=== PATIENT | male | born 1945 | race Caucasian/White ===

== ENCOUNTER 2016-04-26 19:30 | Inpatient (IN) | payer MEDICARE ==
[2016-04-26] MEDS ORDERED: NS 0.9% 1000 ML* 1,000 ML IV ONE (19:55)
[2016-04-26] MEDS ORDERED: Acetaminophen TAB* 325 MG PO ONE (20:00)
--- NOTE | 2016-04-26 20:31 | RAD ---
Indication: Cough and fever. Post chemotherapy yesterday. Multiple myeloma. Prostate carcinoma. Comparison: There are no prior exams available on the [facility] for comparison. Technique: Upright AP portable 1010 hours Report: Bilateral alveolar opacities most confluent in the RIGHT lower lung zone. Grossly clear pleural spaces. Negative for pneumothorax. Negative for cardiomegaly. Grossly unremarkable central pulmonary vasculature. IMPRESSION: Bilateral alveolar opacities. The differential includes pneumonia as well as alveolar hemorrhage and ARDS.
[2016-04-26 20:45] LABS: Comments Flag Yes; Hematocrit 30 % (42-52); Hemoglobin 10.1 g/dl (14.0-18.0); Mean Corpuscular HGB Conc 33 g/dl (31-36); Mean Corpuscular Hemoglobin 33 pg (27-31); Mean Corpuscular Volume 98 fL (80-94); Mean Platelet Volume 9 um3 (7.4-10.4); Red Blood Count 3.08 10^6/ul (4.0-5.4); Red Cell Distribution Width 18 % (10.5-15); White Blood Count 2.2 10^3/ul (3.5-10.8)
[2016-04-26 20:46] LABS: Add Diff/Slide Review? Slide Review Added
[2016-04-26] MEDS ORDERED: Piperac/Tazob 3.375 gm in NS* 3.375 GM/100 ML BAG IVPB ONE (20:58)
[2016-04-26 20:59] LABS: Albumin 3.2 g/dL (3.2-5.2); C Reactive Protein 66.64 mg/L (< 5.00); Calcium 8.3 mg/dL (8.6-10.3); EGFR African American 62.7 (>60); EGFR Non-African American 48.8 (>60); Globulin 2.3 g/dL (2-4); Potassium 4.5 mmol/L (3.5-5.0); Total Bilirubin 0.8 mg/dL (0.2-1.0); Total Protein 5.5 g/dL (6.4-8.9)
[2016-04-26 21:01] LABS: Troponin I 0.01 ng/mL (<0.04)
[2016-04-26 21:46] LABS: Erythrocyte Sed Rate 48 mm/Hr (0-40)
--- NOTE | 2016-04-26 22:01 | ED ---
Lamont Devries Anna, scribed for Ruperto Lazaro MD on 04/26/16 at 1957 . HPI Febrile Illness - HPI Summary HPI Summary: Patient is a 71 y/o male coming to [facility] with a fever that began today, peaking at 102.6 F. He has had an ongoing productive cough and cold, including nasal congestion. He has taken Mucinex, which has not alleviated the symptoms. He is very tired, at baseline for his treatment. Denies diarrhea, nausea, and vomiting. His most recent chemotherapy treatment was 1-2 days ago. - History of Current Complaint Time Seen by Provider: 04/26/16 19:48 Hx Obtained From: Patient, Family/Material Handling Technician Onset/Duration: Still Present Temperature: 102.6 F Initial Severity: Moderate Current Severity: Moderate Associated Signs and Symptoms: Cough - Allergy/Home Medications Allergies/Adverse Reactions: Allergies Allergy/AdvReac Type Severity Reaction Status Date / Time No Known Allergies Allergy Verified 02/08/12 13:58 Home Medications: Home Medications Apixaban* [Eliquis*] 5 mg PO BID 04/26/16 [History Confirmed 04/26/16] Cardizem CD CAP* 300 mg PO DAILY 04/26/16 [History Confirmed 04/26/16] Tmhxt-2-Iwbr Ethyl Esters (NF) [Lovaza (NF)] 1 gm PO 04/26/16 [History] Synthroid 75 MCG TAB* 0.075 mg PO DAILY 04/26/16 [History Confirmed 04/26/16] Tamsulosin CAP* [Flomax CAP*] 0.4 mg PO DAILY 04/26/16 [History Confirmed ] Zoledronic Acid* [Zometa] 4 mg .SEE ORDER 04/26/16 [History] PMH/Surg Hx/FS Hx/Imm Hx Cardiovascular History: Reports: Hx Atrial Fibrillation, Hx Hypertension - Cancer History Cancer Type, Location and Year: Prostate CA, Melanoma, Multiple Myeloma - Surgical History Surgery Procedure, Year, and Place: multiple myeloma. prostate ca - actively watching this now. skin CA Infectious Disease History: Denies: Traveled Outside the [place] in Last 30 Days - Family History Known Family History: Positive: Other - CA - Social History Occupation: Retired Lives: With Family Alcohol Use: None Substance Use Type: Reports: None Hx Tobacco Use: No Smoking Status (MU): Never Smoked Tobacco Review of Systems Positive: Fever, Fatigue Positive: Other - congestion Positive: Cough All Other Systems Reviewed And Are Negative: Yes Physical Exam - Summary Physical Exam Summary: VITAL SIGNS: Reviewed. GENERAL: Patient is a well developed and nourished male who is lying comfortable in the stretcher. Patient is not in any acute respiratory distress. HEAD AND FACE: No signs of trauma. No ecchymosis, hematomas or skull depressions. No sinus tenderness. EYES: PERRLA, EOMI x 2, No injected conjunctiva, no nystagmus. EARS: Hearing grossly intact. Ear canals and tympanic membranes are within normal limits. MOUTH: Oropharynx within normal limits. NECK: Supple, trachea is midline, no adenopathy, no JVD, no carotid bruit, no c- spine tenderness, neck with full ROM. CHEST: Symmetric, no tenderness at palpation LUNGS: Positive crackles in both lungs. . CVS: Regular rate and rhythm, S1 and S2 present, no murmurs or gallops appreciated. ABDOMEN: Soft, non-tender. No signs of distention. No rebound no guarding, and no masses palpated. Bowel sounds are normal. EXTREMITIES: FROM in all major joints, no edema, no cyanosis or clubbing. NEURO: Alert and oriented x 3. No acute neurological deficits. Speech is normal and follows commands. SKIN: Dry and warm Triage Information Reviewed: Yes Vital Signs On Initial Exam: Initial Vitals Temp Pulse Resp BP Pulse Ox 101.4 F 86 30 139/71 93 04/26/16 19:57 04/26/16 19:57 04/26/16 19:57 04/26/16 19:57 04/26/16 19:57 Vital Signs Reviewed: Yes Diagnostics - Vital Signs Vital Signs Temp Pulse Resp BP Pulse Ox 04/26/16 19:57 101.4 F 86 30 139/71 93 - Laboratory Lab Results: Lab Results 04/26/16 04/26/16 04/26/16 Range/Units 20:25 20:25 20:25 WBC 2.2 L (3.5-10.8) 10^3/ul RBC 3.08 L (4.0-5.4) 10^6/ul Hgb 10.1 L (14.0-18.0) g/dl Hct 30 L (42-52) % MCV 98 H (80-94) fL MCH 33 H (27-31) pg MCHC 33 (31-36) g/dl RDW 18 H (10.5-15) % Plt Count 31 L (150-450) 10^3/ul MPV 9 (7.4-10.4) um3 Neut % (Auto) 93.0 H (38-83) % Lymph % (Auto) 2.0 L (25-47) % Chaves % (Auto) 4.6 (1-9) % Eos % (Auto) 0.2 (0-6) % Baso % (Auto) 0.2 (0-2) % Absolute Neuts (auto) 2.0 (1.5-7.7) 10^3/ul Absolute Lymphs (auto) 0 L (1.0-4.8) 10^3/ul Absolute Monos (auto) 0.1 (0-0.8) 10^3/ul Absolute Eos (auto) 0 (0-0.6) 10^3/ul Absolute Basos (auto) 0 (0-0.2) 10^3/ul Absolute Nucleated RBC 0.01 10^3/ul Nucleated RBC % 0.5 ESR Pending INR (Anticoag Therapy) 1.14 H (0.89-1.11) APTT 26.3 (26.0-36.3) seconds Fibrinogen 423 H (110.8-404.3) mg/dL Sodium 134 (133-145) mmol/L Potassium 4.5 (3.5-5.0) mmol/L Chloride 101 (101-111) mmol/L Carbon Dioxide 26 (22-32) mmol/L Anion Gap 7 (2-11) mmol/L BUN 30 H (6-24) mg/dL Creatinine 1.43 H (0.67-1.17) mg/dL Est GFR ( Amer) 62.7 (>60) Est GFR (Non-Af Amer) 48.8 (>60) BUN/Creatinine Ratio 21.0 H (8-20) Glucose 111 H (70-100) mg/dL Lactic Acid (0.5-2.0) mmol/L Calcium 8.3 L (8.6-10.3) mg/dL Total Bilirubin 0.80 (0.2-1.0) mg/dL AST 12 L (13-39) U/L ALT 17 (7-52) U/L Alkaline Phosphatase 39 (34-104) U/L Troponin I 0.01 (<0.04) ng/mL C-Reactive Protein 66.64 H (< 5.00) mg/L B-Natriuretic Peptide ( - 100) pg/mL Total Protein 5.5 L (6.4-8.9) g/dL Albumin 3.2 (3.2-5.2) g/dL Globulin 2.3 (2-4) g/dL Albumin/Globulin Ratio 1.4 (1-3) 04/26/16 04/26/16 Range/Units 20:25 20:25 WBC (3.5-10.8) 10^3/ul RBC (4.0-5.4) 10^6/ul Hgb (14.0-18.0) g/dl Hct (42-52) % MCV (80-94) fL MCH (27-31) pg MCHC (31-36) g/dl RDW (10.5-15) % Plt Count (150-450) 10^3/ul MPV (7.4-10.4) um3 Neut % (Auto) (38-83) % Lymph % (Auto) (25-47) % Chaves % (Auto) (1-9) % Eos % (Auto) (0-6) % Baso % (Auto) (0-2) % Absolute Neuts (auto) (1.5-7.7) 10^3/ul Absolute Lymphs (auto) (1.0-4.8) 10^3/ul Absolute Monos (auto) (0-0.8) 10^3/ul Absolute Eos (auto) (0-0.6) 10^3/ul Absolute Basos (auto) (0-0.2) 10^3/ul Absolute Nucleated RBC 10^3/ul Nucleated RBC % ESR INR (Anticoag Therapy) (0.89-1.11) APTT (26.0-36.3) seconds Fibrinogen (110.8-404.3) mg/dL Sodium (133-145) mmol/L Potassium (3.5-5.0) mmol/L Chloride (101-111) mmol/L Carbon Dioxide (22-32) mmol/L Anion Gap (2-11) mmol/L BUN (6-24) mg/dL Creatinine (0.67-1.17) mg/dL Est GFR ( Amer) (>60) Est GFR (Non-Af Amer) (>60) BUN/Creatinine Ratio (8-20) Glucose (70-100) mg/dL Lactic Acid 1.9 (0.5-2.0) mmol/L Calcium (8.6-10.3) mg/dL Total Bilirubin (0.2-1.0) mg/dL AST (13-39) U/L ALT (7-52) U/L Alkaline Phosphatase (34-104) U/L Troponin I (<0.04) ng/mL C-Reactive Protein (< 5.00) mg/L B-Natriuretic Peptide 828 H ( - 100) pg/mL Total Protein (6.4-8.9) g/dL Albumin (3.2-5.2) g/dL Globulin (2-4) g/dL Albumin/Globulin Ratio (1-3) Result Diagrams: 04/26/16 20:25 04/26/16 20:25 Lab Statement: Any lab studies that have been ordered have been reviewed, and results considered in the medical decision making process. - Radiology CXR Xray Interpretation: Positive (See Comments) Radiology Interpretation Completed By: Radiologist - IMPRESSION: Bilateral alveolar opacities. The differential includes pneumonia as well as alveolar hemorrhage and ARDS. - EKG 21:11 Cardiac Rate: NL - 89 bpm EKG Rhythm: Atrial Fibrillation EKG Interpretation: No S/T elevation Course/Dx - Course Assessment/Plan: Patient is a 71 y/o male coming to [facility] with a fever that began today, peaking at 102.6 F. He has had an ongoing productive cough and cold , including nasal congestion. He has taken Mucinex, which has not alleviated the symptoms. He is very tired, at baseline for his treatment. Denies diarrhea, nausea, and vomiting. His most recent chemotherapy treatment was 1-2 days ago. In the Ed course he was given IV fluids and Tylenol for the fever and Zosyn as a broad spectrum antibiotic. CXR impression: Bilateral alveolar opacities. Pneumonia vs alveolar hemorrhages vs ARDS. Blood work shows a WBCs of 2.2, normocytic normochromic anemia, and platelets of 31. Which is lower of his base line. BUN and creatinine is 30/1.43. CRP is 66.64. I discussed the case with Dr. Montaño from Oncology and she agrees with choice of antibiotics. She recommends to admit to Hospitalist. I discuss my physical exam, findings and test results with Dr. Kam from the hospitalist services and she agrees to admit patient to his services. Patient is hemodynamically stable alert and oriented x 3. - Febrile Illness Differential Diagnoses: Bacteremia, Pneumonia, Sepsis - Diagnoses Provider Diagnoses: Pneumonia, r/o sepsis, Thrombocytopenia - Provider Notifications Discussed Care Of Patient With: Dr. Montaño (oncologist) at 19:57. He does not recommend starting Abx now. Dr. Montaño (oncologist) at 21:07. Patient should be admitted to the hospitalist. Dr. Rivera (hospitalist) at 21:09. Agrees to admit patient. Discharge - Discharge Plan Condition: Stable Disposition: ADMITTED TO [facility] The documentation as recorded by the Lamont delgado Anna accurately reflects the service I personally performed and the decisions made by me, Ruperto Lazaro MD.
[2016-04-26 22:52] LABS: PCO2 Arterial 29 mmHg (35-45)
[2016-04-26 23:33] LABS: Urine Bilirubin Negative (Negative); Urine Glucose Negative (Negative); Urine Nitrite Negative (Negative)
[2016-04-27] MEDS ORDERED: Apixaban* 5 MG TAB PO SCH (02:00)
[2016-04-27] MEDS: Azithromycin IV(*) 500 MG in NS 0.9% 250 ML* 250 ML IVPB SCH (02:15)
[2016-04-27] MEDS: Piperac/Tazob 3.375 gm in NS* 3.375 GM/100 ML BAG IVPB SCH ×3 (03:20→20:40)
[2016-04-27] MEDS: Levothyroxine TAB* 75 MCG TAB PO SCH (05:49)
[2016-04-27 06:22] LABS: Hematocrit 28 % (42-52); Hemoglobin 9.4 g/dl (14.0-18.0); Mean Corpuscular HGB Conc 33 g/dl (31-36); Mean Corpuscular Hemoglobin 33 pg (27-31); Mean Corpuscular Volume 98 fL (80-94); Mean Platelet Volume 10 um3 (7.4-10.4); Red Blood Count 2.88 10^6/ul (4.0-5.4); Red Cell Distribution Width 18 % (10.5-15)
[2016-04-27 06:23] LABS: Comments Flag Yes; White Blood Count 2.4 10^3/ul (3.5-10.8)
--- NOTE | 2016-04-27 06:32 | HP ---
HISTORY AND PHYSICAL: DATE OF ADMISSION: 04/27/16 CHIEF COMPLAINT: Fever. HISTORY OF PRESENT ILLNESS: The patient is a 71-year-old gentleman with a history of multiple myeloma diagnosed in 2011, who presents today with fever. He says that he was supposed to come in if his temperature goes over 100.5 and it went over 102.3 today. He also felt a little short of breath with a cough. The cough is productive of white phlegm. He had no chest pain, but he had decreased appetite. No nausea or vomiting. No abdominal pain. No other symptoms. He did not sweat. He did not feel clammy. In the ED, the patient was evaluated and felt to have a bilateral pneumonia. PAST MEDICAL HISTORY: He has a history significant for multiple myeloma diagnosed in 2011, status post stem cell transplant x2, prostate cancer with watchful waiting, hypertension, BPH, hyperlipidemia, hypothyroidism, atrial fibrillation. MEDICATIONS: His current medications are as follows. 1. Synthroid 75 mcg daily. 2. Multivitamin one tablet daily. 3. Ferrous sulfate 28 mg daily. 4. Cholecalciferol 1000 units twice daily. 5. Calcium carbonate one tablet twice daily. 6. Ascorbic acid 500 mg daily. 7. Valacyclovir 500 mg daily. 8. Magness-3 fatty acids 1 g daily. 9. Atorvastatin 10 mg daily. 10. Cardizem CD 300 mg daily. 11. Eliquis 5 mg twice daily. 12. Tamsulosin 0.4 mg daily. 13. Zometa as directed. ALLERGIES: He has no known drug allergies. FAMILY HISTORY: Mother at age 70 of CHF. Father is alive at 97, has dementia. SOCIAL HISTORY: No tobacco. Social alcohol. No recreational drug use. He is retired. He worked for [employer] for; to (do) in the [employer] industry. He is . He has three children. His , Albina Reed, is his healthcare proxy. REVIEW OF SYSTEMS: A 14-point review of systems was completed with the patient. All pertinent positives and negatives are in the history of present illness, otherwise is negative. PHYSICAL EXAMINATION GENERAL: A pleasant gentleman, lying in bed. VITAL SIGNS: Temperature is 99.5 degrees. Heart rate is 78 beats per minute. Respiratory rate 27 breaths per minute. Pulse ox is 99%. Blood pressure is 104 /76. HEENT: Normocephalic, atraumatic. Pupils equal, round, and reactive to light. Moist mucous membranes. NECK: Supple. No JVD, bruits, palpable thyroid or lymphadenopathy. CHEST: Clear to auscultation and percussion bilaterally. CARDIOVASCULAR: S1, S2 appreciated. Regular rate and rhythm. No murmurs, gallops or rubs. ABDOMEN: Positive bowel sounds in all four quadrants. Soft, nontender, nondistended. No hepatosplenomegaly. EXTREMITIES: No cyanosis, clubbing or edema. +2 pulses bilaterally. NEUROLOGIC: Alert and oriented x3. Moves all extremities. SKIN: No rashes or abnormalities. DIAGNOSTIC STUDIES/LAB DATA: White count 2.2, hemoglobin 10.1, hematocrit 30, platelets 31. INR is 1.14. Blood gas: pH 7.3, pCO2 29, pO2 56, bicarb 26.2. Sodium 134, potassium 4.5, chloride 101, CO2 of 26, BUN 30, creatinine 1.43, glucose of 111. BNP is 828. Urinalysis is unremarkable. Influenza is negative. Chest x-ray was interpreted by Radiology as bilateral alveolar opacities. The differential includes pneumonia as well as alveolar hemorrhage and ARDS. EKG shows atrial fibrillation with moderate ventricular response, left axis deviation, left anterior hemiblock. ASSESSMENT AND PLAN: 1. Sepsis secondary to bilateral pneumonia: The patient has tachycardia. T- max is 101.4 here and has a white count of 2.2. Place the patient on Zosyn and Zithromax. Check sputum for C and S, urine for legionella and pneumococcal antigen. The patient is satting, despite 8 to 10 L of nasal cannula, at 88%. We will place him in ICU for Vapotherm until he improves. 2. History of atrial fibrillation: Continue Eliquis. Rate is now adequately controlled. 3. Hypothyroidism: Stable. Continue Synthroid. 4. Hyperlipidemia: Stable. Continue Lipitor. 5. Benign prostatic hypertrophy: Stable. Continue Flomax. 6. Fluids, electrolytes, and nutrition: Regular diet. 7. DVT prophylaxis: On Eliquis. 8. The patient is a full code. TIME SPENT: Over 80 minutes were spent on this H and P, more than 45 minutes of which were spent in direct [id number] contact with the patient in evaluation, physical exam, and counseling and coordination of care. CC: Toya Montaño MD.* [id number]/CPS #: [id number] [facility] NYACK HOSPITALMeredith
[2016-04-27] MEDS: Acetaminophen TAB* 325 MG PO PRN ×2 (07:52→16:51)
[2016-04-27] MEDS: Ascorbic Acid TAB* 500 MG PO SCH (07:52)
[2016-04-27] MEDS: Tamsulosin CAP* 0.4 MG PO SCH (07:52)
[2016-04-27] MEDS: Ferrous Sulfate TAB* 325 MG PO SCH (07:52)
[2016-04-27] MEDS: Multivitamins/Minerals TAB PO SCH (07:54)
[2016-04-27] MEDS: CMCS: OMEGA-3 FATTY ACIDS (NF) 1,000 MG CAP PO SCH (07:54)
[2016-04-27] MEDS: Cholecalciferol TAB* 1000 UNITS PO SCH ×2 (07:54→20:27)
[2016-04-27] MEDS: Atorvastatin* 10 MG TAB PO SCH (07:54)
[2016-04-27] MEDS: Diltiazem CD CAP* 180 MG PO SCH (07:55)
[2016-04-27] MEDS: Calcium/Vitamin D TAB 250/125* TAB PO SCH ×2 (07:55→20:26)
[2016-04-27] MEDS: Diltiazem CD CAP* 120 MG PO SCH (08:16)
[2016-04-27] MEDS ORDERED: Vancomycin(*) 1,250 MG in NS 0.9% 250 ML* 250 ML IVPB ONE (08:39)
[2016-04-27] MEDS ORDERED: NS 0.9% 1000 ML* 1,000 ML IV SCH (08:45)
--- NOTE | 2016-04-27 08:59 | PN ---
Progress Note - Progress Note SOAP: Subjective/History: 71 yo M w metastatic, though quiescent, prostate cancer, and multiple myeloma on therapy presenting with 1 day of fevers and SOB Myeloma:note primary oncologist at [place], Dr. Lockhart Dx in 2011 with IgG kappa MM sp induction with RVD followed by melphalan induction and autologous SCT on 10/2011. He had tandome transplant with second transplant 02/2012. he was disease free until 12/2014 when he relapsed in his bone. He started carflizomib/lenolidomide/dex. He had an admission in May 2015 for heman metapneumovirus. He had an admission in October 2015 with left lowe rlobe PNA. He had stable disease until October of 2015 when he developed new lytic lesions. He started carfilzomeb/cyclophosphamide/ lenalidomide/dex in November of 2015 and is now on cycle 6. He had a recent delay ~3 weeks ago for a mild URI and gastroenteritis. He felt fully recovered and had cycle 6 day 8 and 9 this week in our office Sunday and Sunday. He felt quite well until yesterday when he woke up feeling weak, with a cough productive of white sputum. He developed a fever and went to the ER where he was noted to be febrile and hypoxic. CXR shows bilateral alveolar infiltrates concerning for ARDS. He denies hemoptysis. He was given zosyn and azithro and admitted to the ICU on vapotherm for hypoxia. He has been taking his valtrex prophylaxis at home. He is on eloquis for afib stroke prevention. He denies sick contact. Flu swab in the ER was negative. No nausea, vomiting or diarrhea. Per his primary oncologist's notes, there has been a recent increase in disease with recurrence of a small m-spike and plan for repeat PET/CT after this cycle. TREATMENT: carflizomib 27 mg/m2 dys 1, 2, 8, 9, 15 and 16 cyclophosphamide 300 mg/m2 dys 1, 8, and 15 lenolidomide 25 mg po days 1-21 dexamethasone 20 mg IV dys 1, 2, 8, 9, 15 and 16 Objective: Vital Signs Temp Pulse Resp BP Pulse Ox 101.4 F 98 28 125/85 98 04/27/16 08:00 04/27/16 08:00 04/27/16 08:00 04/27/16 07:45 04/27/16 08:00 ill appearing, hypoxic perr eomi op no thrush diffuse coarse rhonchi tachy and irregular soft nt +bs no le edema A+O x 3, nonfocal neurological exam no rashes Laboratory Results - last 24 hr 04/26/16 04/26/16 04/26/16 20:25 20:25 20:25 WBC 2.2 L RBC 3.08 L Hgb 10.1 L Hct 30 L MCV 98 H MCH 33 H MCHC 33 RDW 18 H Plt Count 31 L MPV 9 Neut % (Auto) 93.0 H Lymph % (Auto) 2.0 L [place] % (Auto) 4.6 Eos % (Auto) 0.2 Baso % (Auto) 0.2 Absolute Neuts (auto) 2.0 Absolute Lymphs (auto) 0 L Absolute Monos (auto) 0.1 Absolute Eos (auto) 0 Absolute Basos (auto) 0 Absolute Nucleated RBC 0.01 Nucleated RBC % 0.5 ESR 48 H INR (Anticoag Therapy) 1.14 H APTT 26.3 Fibrinogen 423 H ABG pH ABG pCO2 ABG pO2 ABG HCO3 ABG O2 Saturation ABG Base Excess Sodium 134 Potassium 4.5 Chloride 101 Carbon Dioxide 26 Anion Gap 7 BUN 30 H Creatinine 1.43 H Est GFR ( Amer) 62.7 Est GFR (Non-Af Amer) 48.8 BUN/Creatinine Ratio 21.0 H Glucose 111 H Lactic Acid Calcium 8.3 L Total Bilirubin 0.80 AST 12 L ALT 17 Alkaline Phosphatase 39 Troponin I 0.01 C-Reactive Protein 66.64 H B-Natriuretic Peptide Total Protein 5.5 L Albumin 3.2 Globulin 2.3 Albumin/Globulin Ratio 1.4 Urine Color Urine Appearance Urine pH Ur Specific Maple Urine Protein Urine Ketones Urine Blood Urine Nitrate Urine Bilirubin Urine Urobilinogen Ur Leukocyte Esterase Urine Glucose Influenza A (Rapid) Influenza B (Rapid) 04/26/16 04/26/16 04/26/16 20:25 20:25 22:32 WBC RBC Hgb Hct MCV MCH MCHC RDW Plt Count MPV Neut % (Auto) Lymph % (Auto) [place] % (Auto) Eos % (Auto) Baso % (Auto) Absolute Neuts (auto) Absolute Lymphs (auto) Absolute Monos (auto) Absolute Eos (auto) Absolute Basos (auto) Absolute Nucleated RBC Nucleated RBC % ESR INR (Anticoag Therapy) APTT Fibrinogen ABG pH ABG pCO2 ABG pO2 ABG HCO3 ABG O2 Saturation ABG Base Excess Sodium Potassium Chloride Carbon Dioxide Anion Gap BUN Creatinine Est GFR ( Amer) Est GFR (Non-Af Amer) BUN/Creatinine Ratio Glucose Lactic Acid 1.9 Calcium Total Bilirubin AST ALT Alkaline Phosphatase Troponin I C-Reactive Protein B-Natriuretic Peptide 828 H Total Protein Albumin Globulin Albumin/Globulin Ratio Urine Color Urine Appearance Urine pH Ur Specific Maple Urine Protein Urine Ketones Urine Blood Urine Nitrate Urine Bilirubin Urine Urobilinogen Ur Leukocyte Esterase Urine Glucose Influenza A (Rapid) Negative Influenza B (Rapid) Negative 04/26/16 04/26/16 04/26/16 22:40 23:15 23:20 WBC RBC Hgb Hct MCV MCH MCHC RDW Plt Count MPV Neut % (Auto) Lymph % (Auto) [place] % (Auto) Eos % (Auto) Baso % (Auto) Absolute Neuts (auto) Absolute Lymphs (auto) Absolute Monos (auto) Absolute Eos (auto) Absolute Basos (auto) Absolute Nucleated RBC Nucleated RBC % ESR INR (Anticoag Therapy) APTT Fibrinogen ABG pH 7.53 H ABG pCO2 29 L ABG pO2 56 L* ABG HCO3 26.2 ABG O2 Saturation 94.0 L ABG Base Excess 1.7 Sodium Potassium Chloride Carbon Dioxide Anion Gap BUN Creatinine Est GFR ( Amer) Est GFR (Non-Af Amer) BUN/Creatinine Ratio Glucose Lactic Acid 0.9 Calcium Total Bilirubin AST ALT Alkaline Phosphatase Troponin I C-Reactive Protein B-Natriuretic Peptide Total Protein Albumin Globulin Albumin/Globulin Ratio Urine Color Yellow Urine Appearance Clear Urine pH 5.0 Ur Specific Maple 1.018 Urine Protein Negative Urine Ketones Negative Urine Blood Negative Urine Nitrate Negative Urine Bilirubin Negative Urine Urobilinogen Negative Ur Leukocyte Esterase Negative Urine Glucose Negative Influenza A (Rapid) Influenza B (Rapid) 04/27/16 05:54 WBC 2.4 L RBC 2.88 L Hgb 9.4 L Hct 28 L MCV 98 H MCH 33 H MCHC 33 RDW 18 H Plt Count 28 L MPV 10 Neut % (Auto) 91.7 H Lymph % (Auto) 4.1 L [place] % (Auto) 3.4 Eos % (Auto) 0.6 Baso % (Auto) 0.2 Absolute Neuts (auto) 2.2 Absolute Lymphs (auto) 0.1 L Absolute Monos (auto) 0.1 Absolute Eos (auto) 0 Absolute Basos (auto) 0 Absolute Nucleated RBC 0.02 Nucleated RBC % 0.9 ESR INR (Anticoag Therapy) APTT Fibrinogen ABG pH ABG pCO2 ABG pO2 ABG HCO3 ABG O2 Saturation ABG Base Excess Sodium Potassium Chloride Carbon Dioxide Anion Gap BUN Creatinine Est GFR ( Amer) Est GFR (Non-Af Amer) BUN/Creatinine Ratio Glucose Lactic Acid Calcium Total Bilirubin AST ALT Alkaline Phosphatase Troponin I C-Reactive Protein B-Natriuretic Peptide Total Protein Albumin Globulin Albumin/Globulin Ratio Urine Color Urine Appearance Urine pH Ur Specific Maple Urine Protein Urine Ketones Urine Blood Urine Nitrate Urine Bilirubin Urine Urobilinogen Ur Leukocyte Esterase Urine Glucose Influenza A (Rapid) Influenza B (Rapid) Assessment: 71 yo M w relapsed MM on cyclophosphamide/carflizomib/lenolidamide/ dexamethasone cycle 6 day 11 presenting with fevers, cough and SOB and found to have bilateral PNA vs. ARDS. His course is quite rapid arguing for a viral or bacterial process rather than a fungal one, though he did have a recent "URI" in cycle 5 with gastroenteritis delaying therapy. I have asked the can line operator , Dr. De La Cruz, and Dr. Doan to consult. Plan: PNA: cont ICU supportive care on vapotherm now with tenuous but stable respiratory status -cont zosyn and azithro for now -one dose vanco given pending ID consultation -swab for human metapneumovirus -sputum culture -CMV PCR MM: significantly immunosuppressed from this but not neutropenic -check quantitative immunoglobulins, will likely benefit from IVIG if IgG <500 -hold therapy for now -valtrex prophylaxis give proteosome inhibitor therapy thrombocytopenia: consistent with disease and treatment. lower now likely related to illness hold eloquis afib w RVR: rate 90s-110, relatively well controlled given current state cont diltiazem ARF: likely prerenal azotemia as it was normal in our office on Sunday start hydration full code no DVT prophylaxis with severe thrombocytopenia
[2016-04-27] MEDS: ValACYclovir (*) 500 MG TAB PO SCH ×2 (09:21→20:27)
[2016-04-27 10:13] LABS: Albumin 2.4 g/dL (3.2-5.2); BUN/Creatinine Ratio 19.3 (8-20); Calcium 6.9 mg/dL (8.6-10.3); EGFR Non-African American 52.1 (>60); Globulin 1.5 g/dL (2-4); Potassium 4.3 mmol/L (3.5-5.0); Total Bilirubin 0.8 mg/dL (0.2-1.0); Total Protein 3.9 g/dL (6.4-8.9)
[2016-04-27] MEDS: Benzonatate CAP* 100 MG PO PRN (13:46)
[2016-04-27] MEDS: Albuterol/Ipratropium NEB.SOL* Albuterol 2.5 MG/Ipratropium 0.5 MG 3 ML INH PRN (13:53)
[2016-04-27] MEDS ORDERED: Albuterol 2.5 MG/3 ML NEB.SOL* (0.083%) INH STA (14:56)
--- NOTE | 2016-04-27 14:56 | CONSULT ---
Consult Consult: Consultation Note Critical Care Requesting Physician: Dr Toya Montaño Reason for consult: hypoxic respiratory failure Limitations in history/physical: respiratory distress Date of consult: 04/27/2016 HPI: 71y M pmhx Afib on AC, Multiple Myeloma s/p autologous transplant 2011 with relapse 2014, now on chemotherapy with last session 04/25 (cycle 6), h/o prostate cancer, [place] [facility] [place] with human metapneumovirus 05/2015 and again 10/2015; He [place] [facility] [place] for fever 102.6, cough+, sputum+, nasal congestion. He was s/p chemotherapy 04/25. reports cough for the past week, no fevers/chills, minimal shortness of breath, no sick contacts/ travel/rashes. No diarrhea/headache/dizziness/joint pains. Muscle soreness+. Some coughing up of blood tinged sputum at times but streaks only. Initial ED vitals 101.4, HR 104, RR 30, bp 139/71, sat 93%; initial lactic acid was 1.9, bnp 828, found to be pancytopenic with bilateral pulm infiltrates. In ER he was given zosyn, azithromycin, blood cx sent. He was started on HF NC for hypoxia. Admitted to the ICU. ROS: negative except for the positives mentioned above. PMHx: multiple myeloma, s/p autologous transplant 2011 with relapse 2014, h/o prostate ca, hypertension, hyperlipidemia, hypothyroidism PSHx: none Family History: mother at 70 CHF; father alive - Dementia Social History: no smoking, social alcohol use, no rec drug use. , , and 3 children. Allergies: NKDA Home Medications: Atorvastatin* [Lipitor*] 10 mg PO DAILY 02/08/12 [History Confirmed 04/27/16] Apixaban* [Eliquis*] 5 mg PO BID 04/26/16 [History Confirmed 04/26/16] Cardizem CD CAP* 300 mg PO DAILY 04/26/16 [History Confirmed 04/26/16] Ysfef-8-[id number] Ethyl Esters (NF) [Lovaza (NF)] 1 gm PO DAILY 04/26/16 [History Confirmed 04/27/16] Synthroid 75 MCG TAB* 0.075 mg PO DAILY 04/26/16 [History Confirmed 04/27/16] Tamsulosin CAP* [Flomax CAP*] 0.4 mg PO DAILY 04/26/16 [History Confirmed ] Zoledronic Acid* [Zometa] 4 mg .SEE ORDER 04/26/16 [History] Ascorbic Acid [Vitamin C] 500 mg PO DAILY 04/27/16 [History Confirmed 04/27/16] Calcium Carbonate-Vitamin D W/ [Caltrate 600+D Plus] 1 tab PO BID 04/27/16 [ History Confirmed 04/27/16] Cholecalciferol [Vitamin D] 1,000 unit PO BID 04/27/16 [History Confirmed ] Ferrous Sulfate [Iron] 28 mg PO DAILY 04/27/16 [History Confirmed 04/27/16] Multiple Vitamins W/ Minerals [Multivitamin Adults] 1 tab PO DAILY 04/27/16 [ History Confirmed 04/27/16] ValACYclovir (*) [Valtrex 500 mg (*)] 500 mg PO DAILY 04/27/16 [History Confirmed 04/27/16] Vitals: Vital Signs Temp 99.6 F 04/27/16 11:50 Pulse 108 04/27/16 14:00 Resp 36 04/27/16 14:00 BP 120/80 04/27/16 14:00 Pulse Ox 90 04/27/16 14:00 Intake & Output 04/26/16 04/27/16 04/27/16 18:59 06:59 18:59 Intake Total 1637 1050 Output Total 225 550 Balance 1412 500 Weight 173 lb 11.588 oz Intake: IV Fluids 1437 ABX - AZITHROMYCIN 270 ABX - ZOSYN 67 IVPB 450 ABX - VANCOMYCIN 250 ABX - ZOSYN 200 Oral 200 600 Output: Urine 225 550 O2/Vent: HF 100%, 40Lpm -> rr 25 now, sat 100% Infusions: NS 125cc/hour Current Medications: Acetaminophen (Tylenol Tab*) 650 mg PO Q4H PRN PRN Reason: FEVER/PAIN Last Admin: 04/27/16 07:52 Dose: 650 mg Albuterol (Ventolin 2.5 Mg/3 Ml Neb.Lorenza*) 2.5 mg INH Q20M STA Stop: 04/27/16 14:57 Albuterol/Ipratropium (Duoneb Neb.Lorenza*) 1 neb INH Q4H PRN PRN Reason: SOB/WHEEZING Last Admin: 04/27/16 13:53 Dose: 1 neb Ascorbic Acid (Vitamin C Tab*) 500 mg PO DAILY [facility] Last Admin: 04/27/16 07:52 Dose: 500 mg Atorvastatin Calcium (Lipitor*) 10 mg PO DAILY [facility] Last Admin: 04/27/16 07:54 Dose: 10 mg Benzonatate (Tessalon Cap*) 200 mg PO TID PRN PRN Reason: COUGH Last Admin: 04/27/16 13:46 Dose: 200 mg Calcium/Vitamin D (Oscal D Tab 250/125*) 2 tab PO BID [facility] Last Admin: 04/27/16 07:55 Dose: 2 tab Cholecalciferol (Vitamin D Tab*) 1,000 units PO BID [facility] Last Admin: 04/27/16 07:54 Dose: 1,000 units Diltiazem HCl (Cardizem Cd Cap*) 120 mg PO DAILY [facility] Last Admin: 04/27/16 08:16 Dose: 120 mg Diltiazem HCl (Cardizem Cd Cap*) 180 mg PO DAILY [facility] Last Admin: 04/27/16 07:55 Dose: 180 mg Ferrous Sulfate (Ferrous Sulfate Tab*) 325 mg PO 0800 [facility] Last Admin: 04/27/16 07:52 Dose: 325 mg Fish Oil (Fish Oil (Nf)) 1 mg PO DAILY [facility] PRN Reason: Protocol Last Admin: 04/27/16 07:54 Dose: 1,000 mg Azithromycin 500 mg/ Sodium (Chloride) 250 mls @ 250 mls/hr IVPB Q24H [facility] Last Admin: 04/27/16 02:15 Dose: 250 mls/hr Piperacillin Sod/Tazobactam Sod (Zosyn 3.375 Gm In Ns Premix*) 3.375 gm in 100 mls @ 25 mls/hr IVPB Q8H [facility] Last Admin: 04/27/16 10:52 Dose: 25 mls/hr Sodium Chloride (Ns 0.9% 1000 Ml*) 1,000 mls @ 125 mls/hr IV PER RATE [facility] Anidulafungin 200 mg/ Sodium (Chloride) 260 mls @ 65 mls/hr IVPB .LOADING DOSE x 1 [facility] Anidulafungin 100 mg/ Sodium (Chloride) 130 mls @ 65 mls/hr IVPB Q24H [facility] Levothyroxine Sodium (Synthroid Tab*) 75 mcg PO DAILY@0600 [facility] Last Admin: 04/27/16 05:49 Dose: 75 mcg Multivitamins/Minerals (Theragran/Minerals Tab*) 1 tab PO DAILY [facility] Last Admin: 04/27/16 07:54 Dose: 1 tab Tamsulosin HCl (Flomax Cap*) 0.4 mg PO DAILY [facility] Last Admin: 04/27/16 07:52 Dose: 0.4 mg Valacyclovir HCl (Valtrex 500 Mg (*)) 500 mg PO BID [facility] PRN Reason: Protocol Last Admin: 04/27/16 09:21 Dose: 500 mg Physical Exam: General: awake, alert, in mod resp distress, in bed, not diaphoretic, able to answer questions HEENT: pallor+, no icterus, moist mucous membranes Neck: no stridor, no jvd CVS: tachycardic, no murmur Resp: bilateral air entry, scattered rhales bilateral base, diffuse wheeziong, mod distress, no acc muscle use Abdomen: soft, nontender, nondistended, no rebound, bowel sounds present Ext: pulses+, warm, no edema Skin: intact, no breakdown, no dryness Neuro: awake, alert, orientedx3, moving all extremities, no gross focal deficit Labs: Laboratory Results - last 24 hr 04/26/16 04/26/16 04/26/16 20:25 20:25 20:25 WBC 2.2 L RBC 3.08 L Hgb 10.1 L Hct 30 L MCV 98 H MCH 33 H MCHC 33 RDW 18 H Plt Count 31 L MPV 9 Neut % (Auto) 93.0 H Lymph % (Auto) 2.0 L [place] % (Auto) 4.6 Eos % (Auto) 0.2 Baso % (Auto) 0.2 Absolute Neuts (auto) 2.0 Absolute Lymphs (auto) 0 L Absolute Monos (auto) 0.1 Absolute Eos (auto) 0 Absolute Basos (auto) 0 Absolute Nucleated RBC 0.01 Nucleated RBC % 0.5 ESR 48 H INR (Anticoag Therapy) 1.14 H APTT 26.3 Fibrinogen 423 H ABG pH ABG pCO2 ABG pO2 ABG HCO3 ABG O2 Saturation ABG Base Excess Sodium 134 Potassium 4.5 Chloride 101 Carbon Dioxide 26 Anion Gap 7 BUN 30 H Creatinine 1.43 H Est GFR ( Amer) 62.7 Est GFR (Non-Af Amer) 48.8 BUN/Creatinine Ratio 21.0 H Glucose 111 H Lactic Acid Calcium 8.3 L Total Bilirubin 0.80 AST 12 L ALT 17 Alkaline Phosphatase 39 Troponin I 0.01 C-Reactive Protein 66.64 H B-Natriuretic Peptide Total Protein 5.5 L Albumin 3.2 Globulin 2.3 Albumin/Globulin Ratio 1.4 Urine Color Urine Appearance Urine pH Ur Specific [place] Urine Protein Urine Ketones Urine Blood Urine Nitrate Urine Bilirubin Urine Urobilinogen Ur Leukocyte Esterase Urine Glucose Influenza A (Rapid) Influenza B (Rapid) 04/26/16 04/26/16 04/26/16 20:25 20:25 22:32 WBC RBC Hgb Hct MCV MCH MCHC RDW Plt Count MPV Neut % (Auto) Lymph % (Auto) [place] % (Auto) Eos % (Auto) Baso % (Auto) Absolute Neuts (auto) Absolute Lymphs (auto) Absolute Monos (auto) Absolute Eos (auto) Absolute Basos (auto) Absolute Nucleated RBC Nucleated RBC % ESR INR (Anticoag Therapy) APTT Fibrinogen ABG pH ABG pCO2 ABG pO2 ABG HCO3 ABG O2 Saturation ABG Base Excess Sodium Potassium Chloride Carbon Dioxide Anion Gap BUN Creatinine Est GFR ( Amer) Est GFR (Non-Af Amer) BUN/Creatinine Ratio Glucose Lactic Acid 1.9 Calcium Total Bilirubin AST ALT Alkaline Phosphatase Troponin I C-Reactive Protein B-Natriuretic Peptide 828 H Total Protein Albumin Globulin Albumin/Globulin Ratio Urine Color Urine Appearance Urine pH Ur Specific [place] Urine Protein Urine Ketones Urine Blood Urine Nitrate Urine Bilirubin Urine Urobilinogen Ur Leukocyte Esterase Urine Glucose Influenza A (Rapid) Negative Influenza B (Rapid) Negative 04/26/16 04/26/16 04/26/16 22:40 23:15 23:20 WBC RBC Hgb Hct MCV MCH MCHC RDW Plt Count MPV Neut % (Auto) Lymph % (Auto) [place] % (Auto) Eos % (Auto) Baso % (Auto) Absolute Neuts (auto) Absolute Lymphs (auto) Absolute Monos (auto) Absolute Eos (auto) Absolute Basos (auto) Absolute Nucleated RBC Nucleated RBC % ESR INR (Anticoag Therapy) APTT Fibrinogen ABG pH 7.53 H ABG pCO2 29 L ABG pO2 56 L* ABG HCO3 26.2 ABG O2 Saturation 94.0 L ABG Base Excess 1.7 Sodium Potassium Chloride Carbon Dioxide Anion Gap BUN Creatinine Est GFR ( Amer) Est GFR (Non-Af Amer) BUN/Creatinine Ratio Glucose Lactic Acid 0.9 Calcium Total Bilirubin AST ALT Alkaline Phosphatase Troponin I C-Reactive Protein B-Natriuretic Peptide Total Protein Albumin Globulin Albumin/Globulin Ratio Urine Color Yellow Urine Appearance Clear Urine pH 5.0 Ur Specific [place] 1.018 Urine Protein Negative Urine Ketones Negative Urine Blood Negative Urine Nitrate Negative Urine Bilirubin Negative Urine Urobilinogen Negative Ur Leukocyte Esterase Negative Urine Glucose Negative Influenza A (Rapid) Influenza B (Rapid) 04/27/16 04/27/16 05:54 09:13 WBC 2.4 L RBC 2.88 L Hgb 9.4 L Hct 28 L MCV 98 H MCH 33 H MCHC 33 RDW 18 H Plt Count 28 L MPV 10 Neut % (Auto) 91.7 H Lymph % (Auto) 4.1 L [place] % (Auto) 3.4 Eos % (Auto) 0.6 Baso % (Auto) 0.2 Absolute Neuts (auto) 2.2 Absolute Lymphs (auto) 0.1 L Absolute Monos (auto) 0.1 Absolute Eos (auto) 0 Absolute Basos (auto) 0 Absolute Nucleated RBC 0.02 Nucleated RBC % 0.9 ESR INR (Anticoag Therapy) APTT Fibrinogen ABG pH ABG pCO2 ABG pO2 ABG HCO3 ABG O2 Saturation ABG Base Excess Sodium 133 Potassium 4.3 Chloride 104 Carbon Dioxide 24 Anion Gap 5 BUN 26 H Creatinine 1.35 H Est GFR ( Amer) 67.0 Est GFR (Non-Af Amer) 52.1 BUN/Creatinine Ratio 19.3 Glucose 110 H Lactic Acid Calcium 6.9 L Total Bilirubin 0.80 AST 15 ALT 17 Alkaline Phosphatase 32 L Troponin I C-Reactive Protein B-Natriuretic Peptide Total Protein 3.9 L Albumin 2.4 L Globulin 1.5 L Albumin/Globulin Ratio 1.6 Urine Color Urine Appearance Urine pH Ur Specific [place] Urine Protein Urine Ketones Urine Blood Urine Nitrate Urine Bilirubin Urine Urobilinogen Ur Leukocyte Esterase Urine Glucose Influenza A (Rapid) Influenza B (Rapid) Imaging: CXR 04/26 bilateral multifocal infiltrates, minimal congestion, no ptx, no effusion. Cardiac silhouette not enlarged. Assessment: 71y M pmhx Afib on AC, Multiple Myeloma s/p autologous transplant 2011 with relapse 2014, now on chemotherapy with last session 04/25 (cycle 6), h/ o prostate cancer, [place] [facility] [place] with human metapneumovirus 05/2015 and again 10/2015; admitted for fever/cough/sputum, suspected pneumonia, sepsis, hypoxia. -Acute Hypoxic Respiratory Failure -Bilateral/multifocal pneumonia -JOHANA, prerenal azotemia, septic ATN -Severe Sepsis -Pancytopenia -Multiple Myeloma, s/p chemotherapy -AFib Plan: Neuro- stable, not lethargic CVS-hemodyn stable, not in afib now, remains tachy. treat as severe sepsis. IV NS infusion. monitor i/o. lactic acid neg. Resp-on HF NC now but will keep bipap on standby. was tachypneic earlier suddenly but now improved with albuterol. bipap if any further acute change. albuterol q4h. will give albuterol 2.5mg inh x3 doses over 1 hour. reassess after. cxr in am. started on broad spectrum coverage as mentioned. sputum cx/ gram stain prelim so far gram+ and gram-. ID-bilateral infiltrates/fever/pancytopenia. severe sepsis. zosyn #2, azithromycin #2, vanco#1; ID consult appreciated. to be started on antifungal tx , valcyte already added. pending blood cx, sputum cx. CMV PCR to be sent. suspicion for any viral/bacterial pathology, fungal being covered as well. GI-oral diet as tolerated, but npo if on bipap. GI prophylaxis. Renal-IVF NS, monitor i/o, follow K and Mg. likely pre-renal/septic ATN. renal dosing of medications, current GFR>60. Heme-pancytopenic, but not neutropenic. last chemo 04/25. no bleeding. d/c apixiban for AC due to thrombocytopenia. Endo-insulin protocol Musculsk-bedrest for now due to resp distress. fall prec. Wounds-none Nutrition-diabetic diet as tolerated. DVT prophylaxis: no chemical proph due to thrombocytopenia; LE compression boots GI prophylaxis: pepcid po daily Central Line: none Arterial Line: none Reed Cathetor: none Disposition: ICU for severe sepsis and respiratory failure Code Status: Full Code Total Critical Care time is 40 minutes, excluding procedures/teaching Angel Rana, MD [employer]
[2016-04-27] MEDS ORDERED: Anidulafungin* 200 MG in NS 0.9% 250 ML* 200 ML IVPB SCH (15:00)
[2016-04-27] MEDS ORDERED: Albuterol 2.5 MG/3 ML NEB.SOL* (0.083%) ONE ×2 (15:13→15:14)
[2016-04-27] MEDS ORDERED: Vancomycin per Pharmacy* NOTE FOLLOW UP PRN (15:18)
--- NOTE | 2016-04-27 16:40 | ECHO ---
Patient: ESTEBAN TRUJILLO [facility] [place] Rec#: [id number] : 1945 Date: 04/27/2016 Age: 71y Height: 165.1 cm / 65.0 in Weight: 78 kg / 171.9 lbs Sex: M BSA: 1.86 Room#: [facility] Admit Date#: 04/27/2016 Type: Inpatient Referring: Danyel MEADOWS,Toya Capone Reading: Sean Joe MD Zoology Teacher: Flako Calvillo RDCS Transthoracic Echocardiogram Indication: New heart failure BP: 130/80 HR: 96 Rhythm: A-Fib Findings History: A.FIB,SOB Technical Comments: The study is technically difficult. Completed 1520 The study is technically limited due to patient body habitus. Left Ventricle: The left ventricular chamber size is normal. Mild concentric left ventricular hypertrophy is observed. There is a focal wall motion abnormality present.Septal hypokinesis is noted. Left ventricular systolic function is at the lower limits of normal. The estimated ejection fraction is 50-55%. There is variability noted due to atrial fibrillation. The assessment of diastolic function is non-diagnostic. Left Atrium: The left atrium is mild to moderately dilated. Right Ventricle: The right ventricular cavity size is normal. The right ventricular global systolic function is normal. Right Atrium: The right atrium is slightly dilated. Aortic Valve: The aortic valve is trileaflet. The aortic valve leaflets are mildly thickened. Systolic excursion of the aortic valve is normal. There is no evidence of aortic regurgitation. There is no evidence of aortic stenosis. Mitral Valve: There is posterior mitral annular calcification. There is mild mitral regurgitation. There is no evidence of mitral stenosis. Tricuspid Valve: The tricuspid valve appears normal in structure and function. There is trace tricuspid regurgitation. Unable to estimate the right ventricular systolic pressure. Pulmonic Valve: The pulmonic valve structure is not well visualized. There is mild pulmonic regurgitation. Pericardium: There is no pericardial effusion. Aorta: There is no dilatation of the ascending aorta. The aortic arch is not well visualized. There is no dilation of the aortic root. Pulmonary Artery: The main pulmonary artery is not well visualized. Venous: The inferior vena cava appears normal in size. There is a greater than 50% respiratory change in the inferior vena cava dimension. Conclusions Left ventricular systolic function is at the lower limits of normal. There is mild concentric LV hypertrophy. There is mild septal hypokinesis seen. The estimated ejection fraction is 50-55%. There is variability noted due to atrial fibrillation. There is mild mitral regurgitation. There is trace tricuspid regurgitation. Unable to estimate the right ventricular systolic pressure. There is mild pulmonic regurgitation. The patient was noted to be in atrial fibrillation throughout the study No reports of prior studies are offered for comparison. Measurements Name Value Normal Range RVIDd (AP) 2D 2.4 cm (0.9 - 2.6) RVDdMajor (2D) 3.1 cm (2.2 - 4.4) RAd ISD 4CH 5.5 cm (3.4 - 4.9) RA (A4C)W 3.7 cm (2.9 - 4.6) IVSd (2D) 1.2 cm (0.6 - 1) LVPWd (2D) 1.3 cm (0.6 - 1) LVIDd (2D) 5.3 cm (3.6 - 5.4) LVIDs (2D) 3.8 cm - LV FS (2D) 28 % (25 - 45) Aortic Annulus 1.7 cm (1.4 - 2.6) Ao root diameter (2D) 2.7 cm (2.1 - 3.5) Ascending Ao 3.4 cm (2.1 - 3.4) LA dimension (AP) 2D 4.7 cm (2.3 - 3.8) LAd ISD 4CH 6.4 cm (2.9 - 5.3) LA ISD 4CH W 4.4 cm (2.5 - 4.5) Name Value Normal Range LA ESV SP 4CH (A/L) 87 ml - LA ESV SP 2CH (A/L) 99 ml - LA ESV BP (A/L) 95 ml - LA ESV BP (A/L) index 51.34 ml/m2 - LA ESV SP 4CH (MOD) 84 ml - LA ESV SP 2CH (MOD) 92 ml - Name Value Normal Range MV E-wave Vmax 0.94 m/sec - MV deceleration time 180 msec - MV A-wave Vmax 0.7 m/sec - MV E:A ratio 257 ratio - LV septal e' Vmax 0.11 m/sec - LV E:e' septal ratio 8.5 ratio - Name Value Normal Range LVOT Vmax 0.8 m/sec - Name Value Normal Range TR Vmax 2.1 m/sec - TR peak gradient 18 mmHg - IVC diameter 1.56 cm - Name Value Normal Range PV Vmax 1.02 m/sec - PV peak gradient 4.15 mmHg -
--- NOTE | 2016-04-27 17:11 | CONS ---
CONSULTATION REPORT: DATE OF CONSULT: 04/27/16 REQUESTING PHYSICIAN: Dr. Montaño. CONSULTING SERVICE: Infectious Disease. REASON FOR CONSULTATION: Acute hypoxemic respiratory failure and pneumonia in the setting of bone marrow transplant for myeloma. IMPRESSION: 1. History of autogeneic bone marrow transplant in the setting of multiple myeloma, ongoing chemotherapy and steroid use. Now with right middle lobe infiltrate and acute hypoxemic respiratory failure. Differential diagnosis includes the usual bacterial and viral organisms of community acquired pneumonia as well as hospital acquired infection given frequent healthcare exposure as well as though he is not profoundly neutropenic over the past few months, I think fungal including aspergillus is in the differential. Pneumocystis seems likely given radiographic appearance of infiltrate. For viral infection, human melanoma virus, adenovirus, and cytomegalovirus are always in the consideration. 2. Prostate cancer. RECOMMENDATIONS: 1. Agree with vancomycin single shot 10 to 15, Zosyn, azithromycin 500 mg daily , and continue his Valtrex prophylaxis. 2. Anidulafungin with blood and sputum cultures. He is being seen by Critical Care now for possible BiPAP support given his worsening hypoxia and tachypnea. HISTORY OF PRESENT ILLNESS: This is a 71-year-old male with a bone marrow transplant for myeloma now with dyspnea and hypoxia. He was well until about 2 days ago, developed gradual increasing chills, low-grade fever, dyspnea and cough. He came to the hospital after being seen in the Oncology office with dyspnea at rest and hypoxia. He was admitted earlier this morning, it was showing that he was febrile and normotensive with an oxygen saturation in the 70s on room air. He is now on 100% FiO2. Respiratory rate in the 30s and dyspnea with movement as well as desaturation with movement. He denies any chest pain, but does have a cough which is nonproductive. Occasionally, he gets some sputum previously, but that has resolved. He did get some blood upon his clearing his throat. He has had no sore throat, stuffy nose, painful eyes. He has had no sick contacts. He has had no travel. PAST MEDICAL HISTORY: 1. Multiple myeloma diagnosed in 2011. He has had 2 bone marrow transplant, with history of human metapneumovirus infection. 2. Prostate cancer. 3. Hypertension. 4. Benign prostatic hypertrophy. 5. Hyperlipidemia. 6. Hypothyroidism. 7. Atrial fibrillation. MEDICATIONS: 1. Tylenol. 2. Albuterol. 3. Ascorbic acid. 4. Lipitor. 5. Cholecalciferol. 6. Diltiazem. 7. Ferrous sulfate. 8. Levothyroxine. 9. Tamsulosin. 10. Valtrex 500 mg by mouth twice daily. 11. Azithromycin 500 mg daily. 12. Zosyn 3.375 mg every 8 hours by extended infusion. ALLERGIES: No known drug allergies. FAMILY HISTORY: No recurrent infections or tuberculosis. SOCIAL HISTORY: Lives in [place]. Most of the care has been in the [place]. Lives with his who has been well. Has a pet dog at home. No travel. No sick contacts. REVIEW OF SYSTEMS: All negative except as noted above. PHYSICAL EXAM: Vital Signs: Temperature 37.6, heart rate 110, respiratory rate 40, oxygen saturation 90% on 100% oxygen, blood pressure 120/80. In general, he is awake, he has one word dyspnea. Neurologically, he is oriented x3, follows all commands, answers all questions. HEENT: Pupil equal, round and reactive to light without conjunctival hemorrhage. Oropharynx without lesions. Neck is supple without nuchal rigidity. Lymph Nodes: There is no cervical, supraclavicular, inguinal, axillary, or epitrochlear lymphadenopathy. Heart is regular and tachycardic without murmurs. Lungs with coarse breath sounds bibasilar. No wheezes, rales, or rhonchi. Abdomen: Soft, nontender, nondistended without hepatosplenomegaly. Skin: There is no rashes or splinter hemorrhages. Musculoskeletal: There is no spine tenderness to palpation or joint synovitis. LABORATORY DATA: Influenza PCR negative. White blood cell count 2.4, hemoglobin 9.4, platelets 28. Absolute neutrophil count 2200, creatinine 1.3. Urinalysis negative. Please see impression and recommendations outlined above, which I have discussed with Dr. Montaño and with Dr. De La Cruz. Thank you for asking me to see Mr. Reed in consultation. [id number]/[facility] #: [id number] [id number]
[2016-04-27] MEDS: Vancomycin(*) 1,000 MG in NS 0.9% 250 ML* 250 ML IVPB SCH (17:33)
[2016-04-28] MEDS ORDERED: NS 0.9% 250 ML* 250 ML ONE ×2 (02:47→05:48)
[2016-04-28] MEDS: Azithromycin IV(*) 500 MG in NS 0.9% 250 ML* 250 ML IVPB SCH (03:01)
[2016-04-28] MEDS: Piperac/Tazob 3.375 gm in NS* 3.375 GM/100 ML BAG IVPB SCH ×3 (03:06→20:21)
[2016-04-28] MEDS: Acetaminophen TAB* 325 MG PO PRN ×2 (04:03→20:21)
[2016-04-28] MEDS: Vancomycin(*) 1,000 MG in NS 0.9% 250 ML* 250 ML IVPB SCH ×2 (06:09→19:08)
[2016-04-28] MEDS: Levothyroxine TAB* 75 MCG TAB PO SCH (06:10)
[2016-04-28] MEDS: ValACYclovir (*) 500 MG TAB PO SCH ×2 (07:56→20:34)
[2016-04-28] MEDS: Atorvastatin* 10 MG TAB PO SCH (07:56)
[2016-04-28] MEDS: Cholecalciferol TAB* 1000 UNITS PO SCH ×2 (07:56→20:22)
[2016-04-28] MEDS: CMCS: OMEGA-3 FATTY ACIDS (NF) 1,000 MG CAP PO SCH (07:56)
[2016-04-28] MEDS: Multivitamins/Minerals TAB PO SCH (07:57)
[2016-04-28] MEDS: Calcium/Vitamin D TAB 250/125* TAB PO SCH ×2 (07:58→20:22)
[2016-04-28] MEDS: Tamsulosin CAP* 0.4 MG PO SCH (07:58)
[2016-04-28] MEDS: Diltiazem CD CAP* 120 MG PO SCH (07:58)
[2016-04-28] MEDS: Ferrous Sulfate TAB* 325 MG PO SCH (07:58)
[2016-04-28] MEDS: Ascorbic Acid TAB* 500 MG PO SCH (07:58)
[2016-04-28] MEDS: Diltiazem CD CAP* 180 MG PO SCH (07:58)
--- NOTE | 2016-04-28 08:03 | RAD ---
INDICATION: Infiltrates COMPARISON: April 26, 2016 TECHNIQUE: An AP portable view obtained at 0623 hours is submitted. FINDINGS: Bones/Soft Tissues: There are no acute bony findings. Cardiomediastinal: Cardiac silhouette is mildly prominent. Lungs: Extensive bilateral infiltrates with consolidation in the right with mild progression. Patchy alveolar infiltrative change in left upper and lower lobes, unchanged. Pleura: Suspect small bilateral effusions. Other: None IMPRESSION: BILATERAL INFILTRATES WITH EXTENSIVE RIGHT-SIDED CONSOLIDATION WITH MILD PROGRESSION
--- NOTE | 2016-04-28 11:23 | PN ---
Progress Note - Progress Note Note: Progress Note - Critical Care 24 hours events: -transferred to ICU yesterday, remains on HF NC -was on bipap overnight due to some work of breathing -this morning on 100% HF 40lpm, sat 100%, rr20; appears more comfortable this morning, he states he feels better -low grade temps overnight, cough+, sob better. no diarrhea. Vitals: Vital Signs Temp 100.6 F 04/28/16 11:11 Pulse 102 04/28/16 11:00 Resp 21 04/28/16 11:00 BP 128/68 04/28/16 11:00 Pulse Ox 99 04/28/16 11:00 Intake & Output 04/27/16 04/28/16 04/28/16 18:59 06:59 18:59 Intake Total 1050 3691 350 Output Total 850 400 Balance 200 3291 350 Weight 175 lb 4.28 oz Intake: IV Fluids 2691 NS (0.9%) 2691 IVPB 450 ABX - VANCOMYCIN 250 ABX - ZOSYN 200 Oral 600 1000 350 Output: Urine 850 400 Other: Estimated Void Large # Voids 1 O2/Vent: HF 100%, 40Lpm -> rr 20 now, sat 100% Infusions: NS 125cc/hour Current Medications: Current Medications Acetaminophen (Tylenol Tab*) 650 mg PO Q4H PRN PRN Reason: FEVER/PAIN Last Admin: 04/28/16 04:03 Dose: 650 mg Albuterol/Ipratropium (Duoneb Neb.Lorenza*) 1 neb INH Q4H PRN PRN Reason: SOB/WHEEZING Last Admin: 04/27/16 13:53 Dose: 1 neb Ascorbic Acid (Vitamin C Tab*) 500 mg PO DAILY [facility] Last Admin: 04/28/16 07:58 Dose: 500 mg Atorvastatin Calcium (Lipitor*) 10 mg PO DAILY [facility] Last Admin: 04/28/16 07:56 Dose: 10 mg Benzonatate (Tessalon Cap*) 200 mg PO TID PRN PRN Reason: COUGH Last Admin: 04/27/16 13:46 Dose: 200 mg Calcium/Vitamin D (Oscal D Tab 250/125*) 2 tab PO BID [facility] Last Admin: 04/28/16 07:58 Dose: 2 tab Cholecalciferol (Vitamin D Tab*) 1,000 units PO BID [facility] Last Admin: 04/28/16 07:56 Dose: 1,000 units Diltiazem HCl (Cardizem Cd Cap*) 120 mg PO DAILY [facility] Last Admin: 04/28/16 07:58 Dose: 120 mg Diltiazem HCl (Cardizem Cd Cap*) 180 mg PO DAILY [facility] Last Admin: 04/28/16 07:58 Dose: 180 mg Ferrous Sulfate (Ferrous Sulfate Tab*) 325 mg PO 0800 [facility] Last Admin: 04/28/16 07:58 Dose: 325 mg Fish Oil (Fish Oil (Nf)) 1 mg PO DAILY [facility] PRN Reason: Protocol Last Admin: 04/28/16 07:56 Dose: 1,000 mg Azithromycin 500 mg/ Sodium (Chloride) 250 mls @ 250 mls/hr IVPB Q24H [facility] Last Admin: 04/28/16 03:01 Dose: 250 mls/hr Piperacillin Sod/Tazobactam Sod (Zosyn 3.375 Gm In Ns Premix*) 3.375 gm in 100 mls @ 25 mls/hr IVPB Q8H [facility] Last Admin: 04/28/16 03:06 Dose: 25 mls/hr Sodium Chloride (Ns 0.9% 1000 Ml*) 1,000 mls @ 125 mls/hr IV PER RATE [facility] Last Admin: 04/27/16 23:39 Dose: 125 mls/hr Anidulafungin 100 mg/ Sodium (Chloride) 130 mls @ 65 mls/hr IVPB Q24H [facility] Vancomycin HCl 1,000 mg/ (Sodium Chloride) 250 mls @ 166.667 mls/hr IVPB Q12H [facility] Last Admin: 04/28/16 06:09 Dose: 166.667 mls/hr Levothyroxine Sodium (Synthroid Tab*) 75 mcg PO DAILY@0600 [facility] Last Admin: 04/28/16 06:10 Dose: 75 mcg Multivitamins/Minerals (Theragran/Minerals Tab*) 1 tab PO DAILY [facility] Last Admin: 04/28/16 07:57 Dose: 1 tab Pharmacy Consult (Vancomycin Per Pharmacy*) 1 note FOLLOW UP . PRN PRN Reason: PER PROTOCOL Pharmacy Profile Note (Vancomycin Trough Check) 1 note FOLLOW UP 1730 ONE Stop: 04/28/16 17:31 Tamsulosin HCl (Flomax Cap*) 0.4 mg PO DAILY [facility] Last Admin: 04/28/16 07:58 Dose: 0.4 mg Valacyclovir HCl (Valtrex 500 Mg (*)) 500 mg PO BID [facility] PRN Reason: Protocol Last Admin: 04/28/16 07:56 Dose: 500 mg Physical Exam: General: awake, alert, less resp distress, in bed, not diaphoretic, able to answer questions HEENT: pallor+, no icterus, moist mucous membranes Neck: no stridor, no jvd CVS: tachycardic, no murmur Resp: bilateral air entry, scattered rhales bilateral base, wheezing improved today, less distress, no acc muscle use Abdomen: soft, nontender, nondistended, no rebound, bowel sounds present Ext: pulses+, warm, no edema Skin: intact, no breakdown, no dryness Neuro: awake, alert, orientedx3, moving all extremities, no gross focal deficit Labs: Pending labwork for today. Imaging: CXR 04/26 bilateral multifocal infiltrates, minimal congestion, no ptx, no effusion. Cardiac silhouette not enlarged. cxr 04/28 - bilateral infiltrates with Right consolidation more than left, worse than yesterday. Assessment: 71y M pmhx Afib on AC, Multiple Myeloma s/p autologous transplant 2011 with relapse 2014, now on chemotherapy with last session 04/25 (cycle 6), h/ o prostate cancer, last admission to [facility] for pneumonia with human metapneumovirus 05/2015 and again 10/2015; admitted for fever/cough/sputum, suspected pneumonia, sepsis, hypoxia. -Acute Hypoxic Respiratory Failure -Bilateral/multifocal pneumonia -JOHANA, prerenal azotemia, septic ATN -Severe Sepsis -Pancytopenia -Multiple Myeloma, s/p chemotherapy -AFib Plan: Neuro- stable, not lethargic CVS-hemodyn stable, not in afib now, remains tachy. treat as severe sepsis. IV NS infusion. monitor i/o. lactic acid neg. Resp-on HF NC now but will keep bipap on standby. still requiring high flow and fio2. bipap if any further acute change. albuterol q4h. cxr in am. started on broad spectrum coverage as mentioned. sputum cx/gram stain prelim so far gram+ and gram-. ID-bilateral infiltrates/fever/pancytopenia. severe sepsis. zosyn #3, azithromycin #3, vanco#2, eraxis #2, valcyte continued; ID consult appreciated. pending blood cx, sputum cx. CMV PCR to be sent. suspicion for any viral/ bacterial pathology, fungal being covered as well. GI-oral diet as tolerated, but npo if on bipap. GI prophylaxis. Renal-IVF NS, monitor i/o, follow K and Mg. likely pre-renal/septic ATN. renal dosing of medications, current GFR>60. Heme-pancytopenic, but not neutropenic. last chemo 04/25. no bleeding. d/c apixiban for AC due to thrombocytopenia. Endo-insulin protocol Musculsk-bedrest for now due to resp distress. fall prec. Wounds-none Nutrition-diabetic diet as tolerated. DVT prophylaxis: no chemical proph due to thrombocytopenia; LE compression boots GI prophylaxis: pepcid po daily Central Line: none Arterial Line: none Reed Cathetor: none Disposition: ICU for severe sepsis and respiratory failure Code Status: Full Code Total Critical Care time is 30 minutes, excluding procedures/teaching Angel De La Cruz MD Refrigerator Tester
--- NOTE | 2016-04-28 11:29 | PN ---
Progress Note - Progress Note SOAP: Subjective: DOS: 04/28/16 CC: pneumonia HPI: 71 yo man with myeloma and history of bone marrow transplant on chemotherapy and steroids admitted with dyspnea, cough, fever, found to be hypoxic and right sided infiltrate. This morning he feels better, less short of breath overnight. Some cough. No diarrhea. Objective: [] Vital Signs Temp 38.1 C 04/28/16 11:11 Pulse 102 04/28/16 11:00 Resp 21 04/28/16 11:00 BP 128/68 04/28/16 11:00 Pulse Ox 99 04/28/16 11:00 Intake & Output 04/27/16 04/28/16 04/28/16 18:59 06:59 18:59 Intake Total 1050 3691 350 Output Total 850 400 Balance 200 3291 350 Weight 175 lb 4.28 oz Intake: IV Fluids 2691 NS (0.9%) 2691 IVPB 450 ABX - VANCOMYCIN 250 ABX - ZOSYN 200 Oral 600 1000 350 Output: Urine 850 400 Other: Estimated Void Large # Voids 1 Gen:NAD, no diaphoresis Neuro:AAOx3 HEENT:PERRL, MMM Neck:Supple Heart:tachycardic, no murmur Lungs: expiratory rhonchi bilaterally Abd:+BS NTND soft Skin: no rash MSK: no joint synovitis LN: no visible or palpable lymphadenopathy Assessment: 1. Acute hypoxemic respiratory failure 2. pneumonia, diff dx includes usual CAP organisms, HCAP, other viral (CMV), fungal (lenore, Aspergillus) 3. myeloma with IgG deficiency 4. hx HSCT 5. ongoing chemotherapy and corticosteroids 6. fever Plan: 1. continue zosyn, vanco goal tr 10-15, azithro day 3/5, anidulafungin 2. cultures, CMV PCR, pending Discussed with Dr Rhodes
[2016-04-28 13:24] LABS: Albumin 2.5 g/dL (3.2-5.2); BUN/Creatinine Ratio 15.9 (8-20); Calcium 6.9 mg/dL (8.6-10.3); EGFR African American 72.6 (>60); EGFR Non-African American 56.4 (>60); Total Bilirubin 0.7 mg/dL (0.2-1.0); Total Protein 4.5 g/dL (6.4-8.9)
[2016-04-28 13:37] LABS: Potassium 4.2 mmol/L (3.5-5.0)
[2016-04-28 14:10] LABS: Hematocrit 21 % (42-52); Hemoglobin 7.1 g/dl (14.0-18.0); Mean Corpuscular HGB Conc 34 g/dl (31-36); Mean Corpuscular Hemoglobin 32 pg (27-31); Mean Corpuscular Volume 97 fL (80-94); Mean Platelet Volume 11 um3 (7.4-10.4); Red Blood Count 2.19 10^6/ul (4.0-5.4); Red Cell Distribution Width 17 % (10.5-15)
[2016-04-28 14:11] LABS: Comments Flag Yes
[2016-04-28] MEDS ORDERED: NS 0.9% 100 ML* 100 ML ONE (14:52)
[2016-04-28] MEDS: Anidulafungin* 100 MG in NS 0.9% 100 ML* 100 ML IVPB SCH (15:31)
[2016-04-28] MEDS ORDERED: Vancomycin Trough Check NOTE FOLLOW UP ONE ×3 (16:30→17:30)
--- NOTE | 2016-04-28 18:36 | PN ---
Progress Note - Progress Note SOAP: Subjective: []Today was allot better then yesterday. Breathing better, still fevers. Tolerating vapotherm. Eating well, bowls moving. Not able to move much or get out of bed. Acetaminophen (Tylenol Tab*) 650 mg PO Q4H PRN PRN Reason: FEVER/PAIN Last Admin: 04/28/16 04:03 Dose: 650 mg Albuterol/Ipratropium (Duoneb Neb.Lorenza*) 1 neb INH Q4H PRN PRN Reason: SOB/WHEEZING Last Admin: 04/27/16 13:53 Dose: 1 neb Ascorbic Acid (Vitamin C Tab*) 500 mg PO DAILY [facility] Last Admin: 04/28/16 07:58 Dose: 500 mg Atorvastatin Calcium (Lipitor*) 10 mg PO DAILY [facility] Last Admin: 04/28/16 07:56 Dose: 10 mg Benzonatate (Tessalon Cap*) 200 mg PO TID PRN PRN Reason: COUGH Last Admin: 04/27/16 13:46 Dose: 200 mg Calcium/Vitamin D (Oscal D Tab 250/125*) 2 tab PO BID [facility] Last Admin: 04/28/16 07:58 Dose: 2 tab Cholecalciferol (Vitamin D Tab*) 1,000 units PO BID [facility] Last Admin: 04/28/16 07:56 Dose: 1,000 units Diltiazem HCl (Cardizem Cd Cap*) 120 mg PO DAILY [facility] Last Admin: 04/28/16 07:58 Dose: 120 mg Diltiazem HCl (Cardizem Cd Cap*) 180 mg PO DAILY [facility] Last Admin: 04/28/16 07:58 Dose: 180 mg Ferrous Sulfate (Ferrous Sulfate Tab*) 325 mg PO 0800 [facility] Last Admin: 04/28/16 07:58 Dose: 325 mg Fish Oil (Fish Oil (Nf)) 1 mg PO DAILY [facility] PRN Reason: Protocol Last Admin: 04/28/16 07:56 Dose: 1,000 mg Azithromycin 500 mg/ Sodium (Chloride) 250 mls @ 250 mls/hr IVPB Q24H [facility] Last Admin: 04/28/16 03:01 Dose: 250 mls/hr Piperacillin Sod/Tazobactam Sod (Zosyn 3.375 Gm In Ns Premix*) 3.375 gm in 100 mls @ 25 mls/hr IVPB Q8H [facility] Last Admin: 04/28/16 11:37 Dose: 25 mls/hr Sodium Chloride (Ns 0.9% 1000 Ml*) 1,000 mls @ 125 mls/hr IV PER RATE [facility] Last Admin: 04/27/16 23:39 Dose: 125 mls/hr Anidulafungin 100 mg/ Sodium (Chloride) 130 mls @ 65 mls/hr IVPB Q24H [facility] Last Admin: 04/28/16 15:31 Dose: 65 mls/hr Vancomycin HCl 1,000 mg/ (Sodium Chloride) 250 mls @ 166.667 mls/hr IVPB Q12H [facility] Last Admin: 04/28/16 06:09 Dose: 166.667 mls/hr Levothyroxine Sodium (Synthroid Tab*) 75 mcg PO DAILY@0600 [facility] Last Admin: 04/28/16 06:10 Dose: 75 mcg Multivitamins/Minerals (Theragran/Minerals Tab*) 1 tab PO DAILY [facility] Last Admin: 04/28/16 07:57 Dose: 1 tab Pharmacy Consult (Vancomycin Per Pharmacy*) 1 note FOLLOW UP . PRN PRN Reason: PER PROTOCOL Tamsulosin HCl (Flomax Cap*) 0.4 mg PO DAILY [facility] Last Admin: 04/28/16 07:58 Dose: 0.4 mg Valacyclovir HCl (Valtrex 500 Mg (*)) 500 mg PO BID [facility] PRN Reason: Protocol Last Admin: 04/28/16 07:56 Dose: 500 mg Objective: [] Vital Signs Temp Pulse Resp BP Pulse Ox 100.2 F 103 30 151/75 95 04/28/16 16:00 04/28/16 18:00 04/28/16 18:00 04/28/16 18:00 04/28/16 18:00 HEENT - Pale, mucosa moist and no lesions Diffuse wheezing, strained, crackles and limited air movement. Obese, good bs, nt/nd ext tr galiela, good pulses, warm neuro- AAOx3, gross non focal Assessment: 71 yo M w relapsed MM on cyclophosphamide/carflizomib/lenolidamide/ dexamethasone cycle 6 day 11 presenting with fevers, cough and SOB and found to have bilateral PNA vs. ARDS vs Carfizomib pneumonitis. He is day 2 on broad spectrum antibiotics and is improving. Plan: 1. PNA: Continue ICU supportive care and improved on Vapotherm, BiPap per ICU team. 2. ID. Will continue Zosyn, Azithromycin, Vanco, and Anidulafungin. Appears to be responding and will follow. Cultures are negative and viral studies pending. CMV may be difficulty to intenerate, would treat only if clinically deteriorating. 3. MM. IgG > 400 and given volume issues and improvement today, no IVIG. Contiue Valtex with Carfizomib. 4. Heme. Progrssive anemia and thrombocytopenia. Secondary to meylosupression as well as consuption. No transfution today but PRBC for Hgb <7.0 and Plts if < 10,000. Hold Eloquis. 5. Afib. HR 90s-110, cont Diltazem 6. Renal function improved 7. Full code 8. DVT prophylaxis once Plts > 50,000
[2016-04-28] MEDS ORDERED: Ondansetron INJ* 2 MG/ML VIAL ONE ×2 (19:06)
[2016-04-28 19:51] LABS: Kappa Free Light Chain 0.0649 mg/dL; Kappa/Lambda Free Light Chain 0.4538
[2016-04-29] MEDS ORDERED: NS 0.9% 250 ML* 250 ML ONE ×2 (00:57→05:58)
[2016-04-29] MEDS: Benzonatate CAP* 100 MG PO PRN ×2 (01:01→01:33)
[2016-04-29] MEDS: Piperac/Tazob 3.375 gm in NS* 3.375 GM/100 ML BAG IVPB SCH ×3 (03:12→19:50)
[2016-04-29] MEDS: Ondansetron INJ* 2 MG/ML VIAL IV PRN ×2 (03:12→16:50)
[2016-04-29] MEDS: Azithromycin IV(*) 500 MG in NS 0.9% 250 ML* 250 ML IVPB SCH (03:13)
[2016-04-29] MEDS: Albuterol/Ipratropium NEB.SOL* Albuterol 2.5 MG/Ipratropium 0.5 MG 3 ML INH PRN (03:31)
[2016-04-29] MEDS ORDERED: Furosemide IV* 10 MG/ML 2 ML VIAL (20 MG) ONE (03:42)
[2016-04-29] MEDS ORDERED: Furosemide IV* 10 MG/ML 2 ML VIAL (20 MG) IV ONE (04:00)
[2016-04-29 05:45] LABS: Hematocrit 22 % (42-52); Hemoglobin 7.4 g/dl (14.0-18.0); Mean Corpuscular HGB Conc 33 g/dl (31-36); Mean Corpuscular Hemoglobin 33 pg (27-31); Mean Corpuscular Volume 97 fL (80-94); Mean Platelet Volume 10 um3 (7.4-10.4); Red Blood Count 2.27 10^6/ul (4.0-5.4); Red Cell Distribution Width 17 % (10.5-15)
[2016-04-29 05:46] LABS: Comments Flag Yes; White Blood Count 1.6 10^3/ul (3.5-10.8)
[2016-04-29 05:47] LABS: Add Diff/Slide Review? Slide Review Added
[2016-04-29] MEDS: Vancomycin(*) 1,000 MG in NS 0.9% 250 ML* 250 ML IVPB SCH ×2 (06:07→16:50)
[2016-04-29] MEDS: Levothyroxine TAB* 75 MCG TAB PO SCH (06:08)
--- NOTE | 2016-04-29 07:50 | PN ---
Progress Note - Progress Note SOAP: Subjective: clinically improving. feels much better than 2 days ago. significant wheezing last night and insomnia. Objective: Vital Signs Temp Pulse Resp BP Pulse Ox 99.8 F 97 29 118/73 100 04/29/16 03:46 04/29/16 06:00 04/29/16 06:00 04/29/16 06:00 04/29/16 06:00 perr eomi op moist mild exp wheeze, crackles, improved over 2 dys ago tachy, irr irr soft nt +bs no le edema warm and well perfused A+O x 3, nonfocal grossly Laboratory Results - last 24 hr 04/27/16 04/28/16 04/28/16 09:13 11:50 13:50 WBC 2.0 L RBC 2.19 L Hgb 7.1 L Hct 21 L MCV 97 H MCH 32 H MCHC 34 RDW 17 H Plt Count 16 L D MPV 11 H Neut % (Auto) 93.7 H Lymph % (Auto) 2.2 L [place] % (Auto) 3.3 Eos % (Auto) 0.4 Baso % (Auto) 0.4 Absolute Neuts (auto) 1.8 Absolute Lymphs (auto) 0 L Absolute Monos (auto) 0.1 Absolute Eos (auto) 0 Absolute Basos (auto) 0 Absolute Nucleated RBC 0.01 Nucleated RBC % 0.7 Sodium 134 Potassium 4.2 Chloride 105 Carbon Dioxide 21 L Anion Gap 8 BUN 20 Creatinine 1.26 H Est GFR ( Amer) 72.6 Est GFR (Non-Af Amer) 56.4 BUN/Creatinine Ratio 15.9 Glucose 121 H Calcium 6.9 L Total Bilirubin 0.70 AST 28 ALT 20 Alkaline Phosphatase 31 L Total Protein 4.5 L Albumin 2.5 L Globulin 2.0 Albumin/Globulin Ratio 1.3 Vancomycin Trough IgG 245 L IgA 10 L IgM 15 L [place] Light Chain 0.0649 L Lambda Light Chain 0.1430 L [place]/Lambda Ratio 0.4538 04/28/16 04/29/16 16:50 05:26 WBC 1.6 L RBC 2.27 L Hgb 7.4 L Hct 22 L MCV 97 H MCH 33 H MCHC 33 RDW 17 H Plt Count 18 L* MPV 10 Neut % (Auto) 89.8 H Lymph % (Auto) 2.2 L [place] % (Auto) 5.8 Eos % (Auto) 1.0 Baso % (Auto) 1.2 Absolute Neuts (auto) 1.5 Absolute Lymphs (auto) 0 L Absolute Monos (auto) 0.1 Absolute Eos (auto) 0 Absolute Basos (auto) 0 Absolute Nucleated RBC 0.01 Nucleated RBC % 0.7 Sodium Potassium Chloride Carbon Dioxide Anion Gap BUN Creatinine Est GFR ( Amer) Est GFR (Non-Af Amer) BUN/Creatinine Ratio Glucose Calcium Total Bilirubin AST ALT Alkaline Phosphatase Total Protein Albumin Globulin Albumin/Globulin Ratio Vancomycin Trough 12.6 IgG IgA IgM [place] Light Chain Lambda Light Chain [place]/Lambda Ratio Acetaminophen (Tylenol Tab*) 650 mg PO Q4H PRN PRN Reason: FEVER/PAIN Last Admin: 04/28/16 20:21 Dose: 650 mg Albuterol/Ipratropium (Duoneb Neb.Lorenza*) 1 neb INH Q4H PRN PRN Reason: SOB/WHEEZING Last Admin: 04/29/16 03:31 Dose: 1 neb Ascorbic Acid (Vitamin C Tab*) 500 mg PO DAILY [facility] Last Admin: 04/28/16 07:58 Dose: 500 mg Atorvastatin Calcium (Lipitor*) 10 mg PO DAILY [facility] Last Admin: 04/28/16 07:56 Dose: 10 mg Benzonatate (Tessalon Cap*) 200 mg PO TID PRN PRN Reason: COUGH Last Admin: 04/29/16 01:33 Dose: 200 mg Calcium/Vitamin D (Oscal D Tab 250/125*) 2 tab PO BID [facility] Last Admin: 04/28/16 20:22 Dose: 2 tab Cholecalciferol (Vitamin D Tab*) 1,000 units PO BID [facility] Last Admin: 04/28/16 20:22 Dose: 1,000 units Diltiazem HCl (Cardizem Cd Cap*) 120 mg PO DAILY [facility] Last Admin: 04/28/16 07:58 Dose: 120 mg Diltiazem HCl (Cardizem Cd Cap*) 180 mg PO DAILY [facility] Last Admin: 04/28/16 07:58 Dose: 180 mg Ferrous Sulfate (Ferrous Sulfate Tab*) 325 mg PO 0800 [facility] Last Admin: 04/28/16 07:58 Dose: 325 mg Fish Oil (Fish Oil (Nf)) 1 mg PO DAILY [facility] PRN Reason: Protocol Last Admin: 04/28/16 07:56 Dose: 1,000 mg Azithromycin 500 mg/ Sodium (Chloride) 250 mls @ 250 mls/hr IVPB Q24H [facility] Last Admin: 04/29/16 03:13 Dose: 250 mls/hr Piperacillin Sod/Tazobactam Sod (Zosyn 3.375 Gm In Ns Premix*) 3.375 gm in 100 mls @ 25 mls/hr IVPB Q8H [facility] Last Admin: 04/29/16 03:12 Dose: 25 mls/hr Sodium Chloride (Ns 0.9% 1000 Ml*) 1,000 mls @ 10 mls/hr IV PER RATE [facility] Last Admin: 04/27/16 23:39 Dose: 125 mls/hr Anidulafungin 100 mg/ Sodium (Chloride) 130 mls @ 65 mls/hr IVPB Q24H [facility] Last Admin: 04/28/16 15:31 Dose: 65 mls/hr Vancomycin HCl 1,000 mg/ (Sodium Chloride) 250 mls @ 166.667 mls/hr IVPB Q12H [facility] Last Admin: 04/29/16 06:07 Dose: 166.667 mls/hr Levothyroxine Sodium (Synthroid Tab*) 75 mcg PO DAILY@0600 [facility] Last Admin: 04/29/16 06:08 Dose: 75 mcg Multivitamins/Minerals (Theragran/Minerals Tab*) 1 tab PO DAILY [facility] Last Admin: 04/28/16 07:57 Dose: 1 tab Ondansetron HCl (Zofran Inj*) 8 mg IV Q8H PRN PRN Reason: NAUSEA/VOMITING Last Admin: 04/29/16 03:12 Dose: 8 mg Pharmacy Consult (Vancomycin Per Pharmacy*) 1 note FOLLOW UP . PRN PRN Reason: PER PROTOCOL Tamsulosin HCl (Flomax Cap*) 0.4 mg PO DAILY [facility] Last Admin: 04/28/16 07:58 Dose: 0.4 mg Valacyclovir HCl (Valtrex 500 Mg (*)) 500 mg PO BID [facility] PRN Reason: Protocol Last Admin: 04/28/16 20:34 Dose: 500 mg Assessment: 71 yo M w relapsed MM on cyclophosphamide/carflizomib/lenolidamide/ dexamethasone cycle 6 day 13 presenting with fevers, cough and SOB and found to have bilateral PNA vs. ARDS. He is improving clinically and is on broad spectrum abx. It is possible that this is drug induced pneumonitis, however the fevers would argue against this. Plan: PNA: cont ICU supportive care on vapotherm now with tenuous but stable respiratory status -on zosyn, vanco, azithro and andulifungin -valtrex prophylaxis, CMV pending -swab for human metapneumovirus pending MM: significantly immunosuppressed from this but not neutropenic -IgG ~250, could get IVIG, however this appears viral and he is improving and so we will hold off -valtrex prophylaxis give proteosome inhibitor therapy thrombocytopenia: consistent with disease and treatment. lower now likely related to illness hold eloquis until plts >50k afib w RVR: rate 90s-110, relatively well controlled given current state cont diltiazem ARF: likely prerenal azotemia as it was normal in our office on Sunday cont hydration full code no DVT prophylaxis with thrombocytopenia
--- NOTE | 2016-04-29 08:21 | RAD ---
INDICATION: Infiltrates. COMPARISON: Comparison is made with a prior study from April 28, 2016. TECHNIQUE: A portable view of the chest was obtained. FINDINGS: Cardiac and mediastinal contours appear to be within normal limits. There is an extensive infiltrate present throughout the right lung which is unchanged. There are also patchy infiltrates present in the left upper lobe and at the left lung base which are unchanged. No pleural effusion is seen. IMPRESSION: BILATERAL INFILTRATES, UNCHANGED.
[2016-04-29] MEDS: Calcium/Vitamin D TAB 250/125* TAB PO SCH ×2 (09:26→21:25)
[2016-04-29] MEDS: Ascorbic Acid TAB* 500 MG PO SCH (09:26)
[2016-04-29] MEDS: Multivitamins/Minerals TAB PO SCH (09:26)
[2016-04-29] MEDS: Cholecalciferol TAB* 1000 UNITS PO SCH ×2 (09:26→21:24)
[2016-04-29] MEDS: Diltiazem CD CAP* 120 MG PO SCH (09:27)
[2016-04-29] MEDS: ValACYclovir (*) 500 MG TAB PO SCH ×2 (09:27→21:23)
[2016-04-29] MEDS: Diltiazem CD CAP* 180 MG PO SCH (09:27)
[2016-04-29 11:54] LABS: Calcium 7.1 mg/dL (8.6-10.3); EGFR African American 77.5 (>60); EGFR Non-African American 60.3 (>60); Potassium 3.6 mmol/L (3.5-5.0)
[2016-04-29] MEDS: CMCS: OMEGA-3 FATTY ACIDS (NF) 1,000 MG CAP PO SCH (12:40)
--- NOTE | 2016-04-29 12:50 | PN ---
Critical Care Services: Patient "feels better" today and claims less SOB. Up in bed and appears comfortable. Vital Signs: Temp Pulse Resp BP SpO2 FiO2 100.9 F 91 22 121/83 96 100 NOTE: On high-flow nasal O2 (Vapotherm) Physical Exam: Gen:As mentioned Lungs:Bilateral wheezes and crackles Cardiac: Irreg rhythm Extremities:No cyanosis or edema Fluid Balance (Past 24 Hours): 04/29/16 06:59 Intake Total 5038 Output Total 1600 Balance +3438 Weight 183 lb Intake: IV Fluids 2568 ABX - AZITHROMYCIN ABX - ZOSYN Eraxis 1768 NS (0.9%) 800 IVPB 450 ABX - VANCOMYCIN 250 ABX - ZOSYN 100 Eraxis 100 Oral 2020 Output: Urine 1600 Other: Estimated Void Date of Last Bowel 04/28/16 Movement # Bowel Movements 1 Estimated Stool Amount Medium # Voids NOTE: Markedly positive fluid balance. Labs: 04/29/16 04/29/16 05:26 11:32 WBC 1.6 L Hgb 7.4 L Hct 22 L Plt Count 18 L* Neut % (Auto) 89.8 H Lymph % (Auto) 2.2 L [place] % (Auto) 5.8 Eos % (Auto) 1.0 Baso % (Auto) 1.2 Absolute Neuts (auto) 1.5 Absolute Lymphs (auto) 0 L Absolute Monos (auto) 0.1 Absolute Eos (auto) 0 Absolute Basos (auto) 0 Absolute Nucleated RBC 0.01 Nucleated RBC % 0.7 Sodium 132 L Potassium 3.6 Chloride 102 Carbon Dioxide 22 BUN 19 Creatinine 1.19 Glucose 126 Calcium 7.1 Studies: CXR - Patchy bilateral infiltrates Nutrition: Oral diet Impression: Clinically improving, although pancytopenia persists, and no pathogen has been isolated. Pulmonary problem appears to be an atypical pneumonia. Fluid balance is markedly positive because of antimicrobial coverage. Plan: Continue present regimen (4 antimicrobials) for now, but consider tapering antibiotic coverage if no pathogen identified. Will also try to reduce fluid intake, if possible. Oncology service will make decisions about IVIG Rx. Critical Care Time: 45 minutes
[2016-04-29] MEDS ORDERED: Furosemide IV* 10 MG/ML VIAL (40 MG) IV ONE (13:04)
[2016-04-29] MEDS ORDERED: NS 0.9% 100 ML* 100 ML ONE (14:56)
[2016-04-29] MEDS: Anidulafungin* 100 MG in NS 0.9% 100 ML* 100 ML IVPB SCH (15:12)
[2016-04-29] MEDS: Ferrous Sulfate TAB* 325 MG PO SCH (16:50)
[2016-04-29] MEDS: Tamsulosin CAP* 0.4 MG PO SCH (21:23)
[2016-04-29] MEDS: Atorvastatin* 10 MG TAB PO SCH (21:23)
[2016-04-29] MEDS: QUEtiapine TAB* 100 MG PO SCH (21:24)
[2016-04-30] MEDS: Azithromycin IV(*) 500 MG in NS 0.9% 250 ML* 250 ML IVPB SCH (01:50)
[2016-04-30] MEDS: Piperac/Tazob 3.375 gm in NS* 3.375 GM/100 ML BAG IVPB SCH ×3 (03:04→20:55)
[2016-04-30 05:20] LABS: Comments Flag Yes; Hematocrit 20 % (42-52); Mean Corpuscular HGB Conc 33 g/dl (31-36); Mean Corpuscular Hemoglobin 32 pg (27-31); Mean Corpuscular Volume 97 fL (80-94); Mean Platelet Volume 10 um3 (7.4-10.4); Red Blood Count 2.05 10^6/ul (4.0-5.4); Red Cell Distribution Width 17 % (10.5-15)
[2016-04-30 05:21] LABS: Hemoglobin 6.5 g/dl (14.0-18.0)
[2016-04-30 05:22] LABS: Add Diff/Slide Review? Slide Review Added
[2016-04-30] MEDS: Vancomycin(*) 1,000 MG in NS 0.9% 250 ML* 250 ML IVPB SCH ×2 (05:28→17:00)
[2016-04-30 05:32] LABS: BUN/Creatinine Ratio 16.8 (8-20); EGFR African American 82.3 (>60); Potassium 3.1 mmol/L (3.5-5.0)
[2016-04-30] MEDS: Levothyroxine TAB* 75 MCG TAB PO SCH (05:45)
[2016-04-30 06:04] LABS: Eosinophils % 3 % (0-6); Immature Granulocytes 2 % (0-9); Neutrophil % 82 % (38-83)
[2016-04-30 06:05] LABS: RBC Morphology Normal (Normal)
[2016-04-30 06:33] LABS: Hematocrit 19 % (42-52)
[2016-04-30 06:37] LABS: Comments Flag Yes
[2016-04-30 06:39] LABS: Hemoglobin 6.2 g/dl (14.0-18.0)
[2016-04-30] MEDS: Diltiazem CD CAP* 180 MG PO SCH (09:31)
[2016-04-30] MEDS: Diltiazem CD CAP* 120 MG PO SCH (09:31)
[2016-04-30] MEDS: Ascorbic Acid TAB* 500 MG PO SCH (09:31)
[2016-04-30] MEDS: ValACYclovir (*) 500 MG TAB PO SCH ×2 (09:31→20:55)
[2016-04-30] MEDS: Cholecalciferol TAB* 1000 UNITS PO SCH ×2 (09:31→20:55)
[2016-04-30] MEDS: Calcium/Vitamin D TAB 250/125* TAB PO SCH ×2 (09:31→20:55)
[2016-04-30] MEDS: Multivitamins/Minerals TAB PO SCH (09:32)
--- NOTE | 2016-04-30 13:24 | PN ---
Critical Care Services: Had a restful evening and continues to feel better. Off high-flow, humidified nasal O2 (Vapotherm) and on nasal O2 at 10 L/min. Vital Signs: Temp Pulse Resp BP SpO2 FiO2 98.4 F 85 25 111/67 99 100 Physical Exam: Gen:Alert, oriented, breathing comfortably Lungs:Crackles both sides. No wheezes Extremities: No cyanosis or edema Fluid Balance (Past 24 Hours): 04/30/16 06:59 Intake Total 2690 Output Total 2550 Balance +140 Weight 171 lb Intake: IV Fluids 384.6 Eraxis NS (0.9%) 384.6 IVPB 986 ABX - VANCOMYCIN ABX - ZOSYN Eraxis NS (0.9%) 859 NS 0.9% 127 Oral 1320 Output: Urine 2550 NOTE: Balanced I & Os Labs: 04/30/16 04/30/16 04/30/16 05:04 05:04 06:20 WBC 1.0 Hgb 6.5 6.2 Hct 20 19 MCV 97 H MCH 32 H MCHC 33 Plt Count 23 Immature Gran % (Auto) 2 Neut % (Auto) 80.0 Lymph % (Auto) 5.9 L [place] % (Auto) 8.5 Eos % (Auto) 4.8 Baso % (Auto) 0.8 Absolute Neuts (auto) 0.8 L* Absolute Lymphs (auto) 0.1 L Absolute Monos (auto) 0.1 Absolute Eos (auto) 0 Absolute Basos (auto) 0 Absolute Nucleated RBC 0.01 Neutrophils % 82 Band Neutrophils % 2 Lymphocytes % 5 L Monocytes % 7 Eosinophils % 3 Basophils % 1 Nucleated RBC % 1.2 Sodium 133 Potassium 3.1 L Chloride 102 Carbon Dioxide 26 Anion Gap 5 BUN 19 Creatinine 1.13 Glucose 108 H Calcium 7.0 L Studies: None today Nutrition: Oral diet Impression: Improved from a respiratory standpoint, but has progressive pancytopenia. Plan: 1. Transfuse one unit PRBCs. 2. Does not need prophylactic platelet transfusions at this point. 3. Oncology to decide about IVIG. Patient informed about his current condition. Critical Care Time: 40 minutes
[2016-04-30] MEDS: Anidulafungin* 100 MG in NS 0.9% 100 ML* 100 ML IVPB SCH (15:26)
[2016-04-30] MEDS ORDERED: Benzocaine/Menthol LOZ* 1 LOZENGE PO PRN (16:41)
[2016-04-30] MEDS: Ferrous Sulfate TAB* 325 MG PO SCH (17:00)
[2016-04-30] MEDS: CMCS: OMEGA-3 FATTY ACIDS (NF) 1,000 MG CAP PO SCH (18:53)
[2016-04-30] MEDS: Tamsulosin CAP* 0.4 MG PO SCH (20:56)
[2016-04-30] MEDS: QUEtiapine TAB* 100 MG PO SCH (20:56)
[2016-04-30] MEDS: Atorvastatin* 10 MG TAB PO SCH (20:56)
[2016-05-01] MEDS: Azithromycin IV(*) 500 MG in NS 0.9% 250 ML* 250 ML IVPB SCH (02:05)
[2016-05-01] MEDS: Piperac/Tazob 3.375 gm in NS* 3.375 GM/100 ML BAG IVPB SCH ×3 (04:03→21:03)
[2016-05-01] MEDS: Vancomycin(*) 1,000 MG in NS 0.9% 250 ML* 250 ML IVPB SCH ×2 (04:03→18:59)
[2016-05-01] MEDS ORDERED: NS 0.9% 250 ML* 250 ML ONE ×3 (05:56→20:53)
[2016-05-01] MEDS: Levothyroxine TAB* 75 MCG TAB PO SCH (06:09)
[2016-05-01 07:25] LABS: Hematocrit 21 % (42-52); Hemoglobin 7.2 g/dl (14.0-18.0); Mean Corpuscular HGB Conc 34 g/dl (31-36); Mean Corpuscular Hemoglobin 32 pg (27-31); Mean Corpuscular Volume 93 fL (80-94); Mean Platelet Volume 10 um3 (7.4-10.4); Red Blood Count 2.26 10^6/ul (4.0-5.4); Red Cell Distribution Width 18 % (10.5-15); White Blood Count 1.3 10^3/ul (3.5-10.8)
[2016-05-01 07:27] LABS: Add Diff/Slide Review? Slide Review Added; Comments Flag Yes
[2016-05-01 07:48] LABS: BUN/Creatinine Ratio 13.9 (8-20); Calcium 7.6 mg/dL (8.6-10.3); EGFR African American 86.7 (>60); EGFR Non-African American 67.4 (>60)
[2016-05-01] MEDS: Ascorbic Acid TAB* 500 MG PO SCH (09:27)
[2016-05-01] MEDS: Diltiazem CD CAP* 180 MG PO SCH (09:28)
[2016-05-01] MEDS: Diltiazem CD CAP* 120 MG PO SCH (09:28)
[2016-05-01] MEDS: ValACYclovir (*) 500 MG TAB PO SCH ×2 (09:28→21:00)
[2016-05-01] MEDS: Cholecalciferol TAB* 1000 UNITS PO SCH ×2 (09:29→21:01)
[2016-05-01] MEDS: Calcium/Vitamin D TAB 250/125* TAB PO SCH ×2 (09:29→20:59)
[2016-05-01] MEDS: Multivitamins/Minerals TAB PO SCH (09:29)
[2016-05-01] MEDS ORDERED: Acetaminophen TAB* 325 MG PO SCH (09:42)
[2016-05-01] MEDS ORDERED: diPHENhydraMINE PO* 25 MG PO SCH (09:42)
--- NOTE | 2016-05-01 09:42 | PN ---
Progress Note - Progress Note SOAP: Subjective: []Feeling better. Breathing better and not difficulty at rest. wants to get up out of bed. He is SOB talking. Eating well and no longer having fevers. Acetaminophen (Tylenol Tab*) 650 mg PO Q4H PRN PRN Reason: FEVER/PAIN Last Admin: 04/28/16 20:21 Dose: 650 mg Albuterol/Ipratropium (Duoneb Neb.Lorenza*) 1 neb INH Q4H PRN PRN Reason: SOB/WHEEZING Last Admin: 04/29/16 03:31 Dose: 1 neb Ascorbic Acid (Vitamin C Tab*) 500 mg PO DAILY [facility] [place] Last Admin: 05/01/16 09:27 Dose: 500 mg Atorvastatin Calcium (Lipitor*) 10 mg PO DAILY@2100 [facility] Last Admin: 04/30/16 20:56 Dose: 10 mg Benzonatate (Tessalon Cap*) 200 mg PO TID PRN PRN Reason: COUGH Last Admin: 04/29/16 01:33 Dose: 200 mg Calcium/Vitamin D (Oscal D Tab 250/125*) 2 tab PO BID [facility] [place] Last Admin: 05/01/16 09:29 Dose: 2 tab Cholecalciferol (Vitamin D Tab*) 1,000 units PO BID [facility] Last Admin: 05/01/16 09:29 Dose: 1,000 units Diltiazem HCl (Cardizem Cd Cap*) 120 mg PO DAILY [facility] [place] Last Admin: 05/01/16 09:28 Dose: 120 mg Diltiazem HCl (Cardizem Cd Cap*) 180 mg PO DAILY [facility] [place] Last Admin: 05/01/16 09:28 Dose: 180 mg Ferrous Sulfate (Ferrous Sulfate Tab*) 325 mg PO DAILY@1700 [facility] [place] Last Admin: 04/30/16 17:00 Dose: 325 mg Fish Oil (Fish Oil (Nf)) 1,000 mg PO 1800 [facility] PRN Reason: Protocol Last Admin: 04/30/16 18:53 Dose: 1,000 mg Azithromycin 500 mg/ Sodium (Chloride) 250 mls @ 250 mls/hr IVPB Q24H [facility] [place] Last Admin: 05/01/16 02:05 Dose: 250 mls/hr Piperacillin Sod/Tazobactam Sod (Zosyn 3.375 Gm In Ns Premix*) 3.375 gm in 100 mls @ 25 mls/hr IVPB Q8H [facility] [place] Last Admin: 05/01/16 04:03 Dose: 25 mls/hr Sodium Chloride (Ns 0.9% 1000 Ml*) 1,000 mls @ 10 mls/hr IV PER RATE [facility] [place] Last Admin: 04/27/16 23:39 Dose: 125 mls/hr Anidulafungin 100 mg/ Sodium (Chloride) 130 mls @ 65 mls/hr IVPB Q24H [facility] [place] Last Admin: 04/30/16 15:26 Dose: 65 mls/hr Vancomycin HCl 1,000 mg/ (Sodium Chloride) 250 mls @ 166.667 mls/hr IVPB Q12H [facility] [place] Last Admin: 05/01/16 04:03 Dose: 166.667 mls/hr Levothyroxine Sodium (Synthroid Tab*) 75 mcg PO DAILY@0600 [facility] [place] Last Admin: 05/01/16 06:09 Dose: 75 mcg Multivitamins/Minerals (Theragran/Minerals Tab*) 1 tab PO DAILY [facility] [place] Last Admin: 05/01/16 09:29 Dose: 1 tab Ondansetron HCl (Zofran Inj*) 8 mg IV Q8H PRN PRN Reason: NAUSEA/VOMITING Last Admin: 04/29/16 16:50 Dose: 8 mg Pharmacy Consult (Vancomycin Per Pharmacy*) 1 note FOLLOW UP . PRN PRN Reason: PER PROTOCOL Quetiapine Fumarate (Seroquel Tab*) 100 mg PO BEDTIME [facility] [place] Last Admin: 04/30/16 20:56 Dose: 100 mg Tamsulosin HCl (Flomax Cap*) 0.4 mg PO DAILY@2100 [facility] [place] Last Admin: 04/30/16 20:56 Dose: 0.4 mg Throat Lozenges (Chloraseptic Allyn*) 1 allyn PO Q6H PRN PRN Reason: SORE THROAT Last Admin: 04/30/16 17:01 Dose: 1 allyn Valacyclovir HCl (Valtrex 500 Mg (*)) 500 mg PO BID [facility] [place] PRN Reason: Protocol Last Admin: 05/01/16 09:28 Dose: 500 mg Objective: [] Vital Signs Temp Pulse Resp BP Pulse Ox 97.3 F 78 18 117/65 98 05/01/16 07:45 05/01/16 08:52 05/01/16 08:52 05/01/16 07:00 05/01/16 08:52 O2 8 L vapotherm, sat 97%. HEENT - Pale, mucosa moist and no lesions Lungs - Much better, good air movment and less wheezing. some crackles. Obese, good bs, nt/nd ext tr galilea, good pulses, warm neuro- AAOx3, gross non focal Assessment: 71 yo M w relapsed MM on cyclophosphamide/carflizomib/lenolidamide/ dexamethasone cycle 6 day 11 presenting with fevers, cough and SOB and found to have bilateral PNA with marked improvement on broad spectrum antibiotics. Plan: 1. PNA: Continue ICU supportive care and improved on Vapotherm. Taper to OK for transfer to floor. 2. ID. Zosyn, Azithromycin, Vanco, and Anidulafungin. Cultures are negative. Consider taper of antibiotics, fungal coverage. 3. MM. IgG > 400, no IVIG. Contiue Valtex with Carfizomib. 4. Heme. Anemia and thrombocytopenia. Secondary to meylosupression as well as consuption. Tx 1 UPRBC, Plts if < 10,000. Hold Eloquis. 5. Afib. SR today, cont Diltazem 6. Renal function improved 7. Full code 8. DVT prophylaxis once Plts > 50,000
[2016-05-01] MEDS: Potassium Chlor TAB* 20 MEQ TAB.ER PO SCH ×2 (12:28→21:00)
--- NOTE | 2016-05-01 12:31 | PN ---
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 Breathing more comfortably, O2 weaned down. No fever, rash, or diarrhea. Ongoing cough with occasional sputum, blood streaked. Objective: [] Vital Signs Temp 36.9 C 05/01/16 11:45 Pulse 84 05/01/16 11:12 Resp 22 05/01/16 11:12 BP 125/65 05/01/16 11:12 Pulse Ox 99 05/01/16 11:12 Intake & Output 04/30/16 05/01/16 05/01/16 18:59 06:59 18:59 Intake Total 1226 440 Output Total 525 400 Balance 701 -400 440 Weight 171 lb 15.369 oz Intake: IV Fluids 259 NS (0.9%) 137 NS 0.9% 122 Oral 600 440 Packed Cells 367 Output: Urine 525 400 Other: Estimated Stool Amount Medium Gen:NAD, no diaphoresis Neuro:AAOx3 HEENT:PERRL, MMM Neck:Supple Heart:tachycardic, no murmur Lungs: expiratory rhonchi bilaterally Abd:+BS NTND soft Skin: no rash MSK: no joint synovitis LN: no visible or palpable lymphadenopathy ABG pH 7.53 (7.35-7.45) H 04/26/16 22:40 ABG HCO3 26.2 mmol/L (19-31) 04/26/16 22:40 Sodium 138 mmol/L (133-145) 05/01/16 06:05 Potassium 3.0 mmol/L (3.5-5.0) L 05/01/16 06:05 BUN 15 mg/dL (6-24) 05/01/16 06:05 Creatinine 1.08 mg/dL (0.67-1.17) 05/01/16 06:05 Calcium 7.6 mg/dL (8.6-10.3) L 05/01/16 06:05 AST 28 U/L (13-39) 04/28/16 11:50 ALT 20 U/L (7-52) 04/28/16 11:50 Abnormal Lab Results 04/30/16 05/01/16 05/01/16 07:15 06:05 06:05 WBC 1.3 L RBC 2.26 L Hgb 7.2 L Hct 21 L MCV 93 MCH 32 H MCHC 34 RDW 18 H Plt Count 29 L MPV 10 Neut % (Auto) 82.5 Lymph % (Auto) 6.9 L [place] % (Auto) 1.6 Eos % (Auto) 7.5 H Baso % (Auto) 1.5 Absolute Neuts (auto) 1.1 L Absolute Lymphs (auto) 0.1 L Absolute Monos (auto) 0 Absolute Eos (auto) 0.1 Absolute Basos (auto) 0 Absolute Nucleated RBC 0.01 Nucleated RBC % 0.7 Hem Pathologist Commnt Sodium 138 Potassium 3.0 L Chloride 105 Carbon Dioxide 27 Anion Gap 6 BUN 15 Creatinine 1.08 Est GFR ( Amer) 86.7 Est GFR (Non-Af Amer) 67.4 BUN/Creatinine Ratio 13.9 Glucose 94 Calcium 7.6 L Blood Type O Negative Antibody Screen Negative Crossmatch See Detail Microbiology 04/28/16 04:20 Blood Venous Aerobic Blood Culture - Preliminary No Growth Day 3 04/28/16 04:20 Blood Venous Anaerobic Blood Culture - Preliminary No Growth Day 3 04/28/16 04:20 Blood Venous Blood Culture - Final 04/28/16 04:00 Blood Venous Aerobic Blood Culture - Preliminary No Growth Day 3 04/28/16 04:00 Blood Venous Anaerobic Blood Culture - Preliminary No Growth Day 3 04/28/16 04:00 Blood Venous Blood Culture - Final 04/26/16 21:30 Blood Venous Aerobic Blood Culture - Preliminary No Growth Day 4 04/26/16 21:30 Blood Venous Anaerobic Blood Culture - Preliminary No Growth Day 4 04/26/16 21:30 Blood Venous Blood Culture - Final 04/26/16 20:25 Blood Venous Aerobic Blood Culture - Preliminary No Growth Day 4 04/26/16 20:25 Blood Venous Anaerobic Blood Culture - Preliminary No Growth Day 4 04/26/16 20:25 Blood Venous Blood Culture - Final 04/28/16 17:15 Urine Urine Culture - Final No Growth (<1,000 CFU/mL) Assessment: 1. Acute hypoxemic respiratory failure, present on admission 2. pneumonia, diff dx includes usual CAP organisms, HCAP, other viral (CMV), fungal (lenore, Aspergillus), improving 3. myeloma with low IgG 4. hx HSCT 5. ongoing chemotherapy and corticosteroids 6. pancytopenia Plan: 1. continue zosyn, vanco goal tr 10-15, anidulafungin day 4/7 2. DC azithromycing 2. CMV PCR, pending, though improving without treating it so unlikely
[2016-05-01] MEDS: CMCS: OMEGA-3 FATTY ACIDS (NF) 1,000 MG CAP PO SCH ×3 (14:43→16:39)
[2016-05-01] MEDS: Ferrous Sulfate TAB* 325 MG PO SCH ×2 (14:44→16:39)
[2016-05-01] MEDS: Anidulafungin* 100 MG in NS 0.9% 100 ML* 100 ML IVPB SCH (16:32)
[2016-05-01] MEDS: Albuterol/Ipratropium NEB.SOL* Albuterol 2.5 MG/Ipratropium 0.5 MG 3 ML INH PRN (19:59)
[2016-05-01] MEDS: Benzonatate CAP* 100 MG PO PRN (20:59)
[2016-05-01] MEDS: Atorvastatin* 10 MG TAB PO SCH (21:00)
[2016-05-01] MEDS: Tamsulosin CAP* 0.4 MG PO SCH (21:01)
[2016-05-01] MEDS: QUEtiapine TAB* 100 MG PO SCH (21:01)
[2016-05-02] MEDS: Furosemide IV* 10 MG/ML 2 ML VIAL (20 MG) IV ONE ×2 (02:28→13:43)
[2016-05-02] MEDS: Piperac/Tazob 3.375 gm in NS* 3.375 GM/100 ML BAG IVPB SCH ×3 (02:29→21:05)
[2016-05-02 05:37] LABS: Hematocrit 26 % (42-52); Hemoglobin 8.8 g/dl (14.0-18.0); Mean Corpuscular HGB Conc 34 g/dl (31-36); Mean Corpuscular Hemoglobin 31 pg (27-31); Mean Corpuscular Volume 92 fL (80-94); Mean Platelet Volume 9 um3 (7.4-10.4); Red Blood Count 2.82 10^6/ul (4.0-5.4); Red Cell Distribution Width 18 % (10.5-15)
[2016-05-02 05:46] LABS: Comments Flag Yes
[2016-05-02 05:48] LABS: White Blood Count 2.7 10^3/ul (3.5-10.8)
[2016-05-02] MEDS: Levothyroxine TAB* 75 MCG TAB PO SCH (05:51)
[2016-05-02 05:53] LABS: Calcium 8.2 mg/dL (8.6-10.3); EGFR African American 85.8 (>60); EGFR Non-African American 66.7 (>60); Potassium 3.2 mmol/L (3.5-5.0)
[2016-05-02] MEDS: Vancomycin(*) 1,000 MG in NS 0.9% 250 ML* 250 ML IVPB SCH (06:28)
[2016-05-02] MEDS: Diltiazem CD CAP* 120 MG PO SCH (10:52)
[2016-05-02] MEDS: Ascorbic Acid TAB* 500 MG PO SCH (10:52)
[2016-05-02] MEDS: Cholecalciferol TAB* 1000 UNITS PO SCH ×2 (10:52→21:02)
[2016-05-02] MEDS: Diltiazem CD CAP* 180 MG PO SCH (10:52)
[2016-05-02] MEDS: Calcium/Vitamin D TAB 250/125* TAB PO SCH ×2 (10:52→21:02)
[2016-05-02] MEDS: Multivitamins/Minerals TAB PO SCH (10:53)
[2016-05-02] MEDS: ValACYclovir (*) 500 MG TAB PO SCH ×2 (10:53→21:11)
[2016-05-02] MEDS: Potassium Chlor TAB* 20 MEQ TAB.ER PO SCH ×2 (10:53→21:02)
--- NOTE | 2016-05-02 14:27 | PN ---
Progress Note - Progress Note SOAP: Subjective: []Feeling better every day. Was able to shower today, walking and breathing has been tolerable. No fevers. Mild RUQ abdominal pain. No diarrhea. Acetaminophen (Tylenol Tab*) 650 mg PO Q4H PRN PRN Reason: FEVER/PAIN Last Admin: 04/28/16 20:21 Dose: 650 mg Albuterol/Ipratropium (Duoneb Neb.Lorenza*) 1 neb INH Q4H PRN PRN Reason: SOB/WHEEZING Last Admin: 05/01/16 19:59 Dose: 1 neb Ascorbic Acid (Vitamin C Tab*) 500 mg PO DAILY [facility] Last Admin: 05/02/16 10:52 Dose: 500 mg Atorvastatin Calcium (Lipitor*) 10 mg PO DAILY@2100 [facility] Last Admin: 05/01/16 21:00 Dose: 10 mg Benzonatate (Tessalon Cap*) 200 mg PO TID PRN PRN Reason: COUGH Last Admin: 05/01/16 20:59 Dose: 200 mg Calcium/Vitamin D (Oscal D Tab 250/125*) 2 tab PO BID [facility] Last Admin: 05/02/16 10:52 Dose: 2 tab Cholecalciferol (Vitamin D Tab*) 1,000 units PO BID [facility] Last Admin: 05/02/16 10:52 Dose: 1,000 units Diltiazem HCl (Cardizem Cd Cap*) 120 mg PO DAILY [facility] Last Admin: 05/02/16 10:52 Dose: 120 mg Diltiazem HCl (Cardizem Cd Cap*) 180 mg PO DAILY [facility] Last Admin: 05/02/16 10:52 Dose: 180 mg Ferrous Sulfate (Ferrous Sulfate Tab*) 325 mg PO DAILY@1700 [facility] Last Admin: 05/01/16 16:39 Dose: 325 mg Fish Oil (Fish Oil (Nf)) 1,000 mg PO 1800 [facility] PRN Reason: Protocol Last Admin: 05/01/16 16:39 Dose: 1,000 mg Piperacillin Sod/Tazobactam Sod (Zosyn 3.375 Gm In Ns Premix*) 3.375 gm in 100 mls @ 25 mls/hr IVPB Q8H [facility] Last Admin: 05/02/16 13:24 Dose: 25 mls/hr Sodium Chloride (Ns 0.9% 1000 Ml*) 1,000 mls @ 10 mls/hr IV PER RATE [facility] Last Admin: 04/27/16 23:39 Dose: 125 mls/hr Anidulafungin 100 mg/ Sodium (Chloride) 130 mls @ 65 mls/hr IVPB Q24H [facility] Last Admin: 05/01/16 16:32 Dose: 65 mls/hr Vancomycin HCl 750 mg/ Sodium (Chloride) 250 mls @ 166.667 mls/hr IVPB Q12H [facility] Levothyroxine Sodium (Synthroid Tab*) 75 mcg PO DAILY@0600 [facility] Last Admin: 05/02/16 05:51 Dose: 75 mcg Multivitamins/Minerals (Theragran/Minerals Tab*) 1 tab PO DAILY [facility] Last Admin: 05/02/16 10:53 Dose: 1 tab Ondansetron HCl (Zofran Inj*) 8 mg IV Q8H PRN PRN Reason: NAUSEA/VOMITING Last Admin: 04/29/16 16:50 Dose: 8 mg Pharmacy Consult (Vancomycin Per Pharmacy*) 1 note FOLLOW UP . PRN PRN Reason: PER PROTOCOL Potassium Chloride (Klor Con Er Tab*) 20 meq PO BID [facility] Last Admin: 05/02/16 10:53 Dose: 20 meq Quetiapine Fumarate (Seroquel Tab*) 100 mg PO BEDTIME [facility] Last Admin: 05/01/16 21:01 Dose: 100 mg Tamsulosin HCl (Flomax Cap*) 0.4 mg PO DAILY@2100 [facility] Last Admin: 05/01/16 21:01 Dose: 0.4 mg Throat Lozenges (Chloraseptic Allyn*) 1 allyn PO Q6H PRN PRN Reason: SORE THROAT Last Admin: 04/30/16 17:01 Dose: 1 allyn Valacyclovir HCl (Valtrex 500 Mg (*)) 500 mg PO BID [facility] PRN Reason: Protocol Last Admin: 05/02/16 10:53 Dose: 500 mg Objective: [] Vital Signs Temp Pulse Resp BP Pulse Ox 98.6 F 85 14 138/68 96 05/02/16 07:25 05/02/16 08:54 05/02/16 08:54 05/02/16 07:25 05/02/16 08:54 O2 5 NC, sat 97%. HEENT - Pale, mucosa moist and no lesions Lungs - Much better, good air movement and less wheezing. some crackles. Obese, good bs, nt/nd ext tr galilea, good pulses, warm neuro- AAOx3, gross non focal Assessment: 71 yo M w relapsed MM on cyclophosphamide/carflizomib/lenolidamide/ dexamethasone cycle 6 day 11 presenting with fevers, cough and SOB and found to have bilateral PNA with marked improvement on broad spectrum antibiotics. Plan: 1. PNA: Slow improvement in respiratory status. Follow. He did improve after IV lasix yesterday. Start Lasix 20 mg po daily 2. ID. Zosyn, Vanco, and Anidulafungin. Cultures are negative. Continue current medications through , d/c on Sunday 3. MM. IgG > 400, no IVIG. Contiue Valtex with Carfizomib. 4. Heme. Anemia and thrombocytopenia improving 5. Afib. SR today, cont Diltazem 6. FEN. Renal function improved, K 3.2, continue at 20 meq bid. 7. Full code 8. DVT prophylaxis once Plts > 50,000 9. GI. Would like pro-biotics. Will add yogurt to diet.
--- NOTE | 2016-05-02 15:05 | PN ---
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 Breathing more comfortably. No fever, rash , or diarrhea. Ongoing cough with occasional sputum, no hemoptysis. Objective: [] Vital Signs Temp 37.0 C 05/02/16 07:25 Pulse 85 05/02/16 08:54 Resp 14 05/02/16 08:54 BP 138/68 05/02/16 07:25 Pulse Ox 96 05/02/16 08:54 Intake & Output 05/01/16 05/02/16 05/02/16 18:59 06:59 18:59 Intake Total 1500 990 946 Output Total 300 3025 1203 Balance 1200 -2034 -257 Intake: IV Fluids 20 350 69 ABX - VANCOMYCIN 250 ABX - ZOSYN 100 NS (0.9%) 69 NS 0.9% 20 IVPB 25 277 ABX - VANCOMYCIN 277 NS 0.9% 25 Oral 1130 640 600 Packed Cells 325 Output: Urine 300 3025 1200 Straight Cath 3 Other: # Bowel Movements 0 # Voids 0 3 Gen:NAD, no diaphoresis Neuro:AAOx3 HEENT:PERRL, MMM Neck:Supple Heart:tachycardic, no murmur Lungs: expiratory rhonchi bilaterally Abd:+BS NTND soft Skin: no rash MSK: no joint synovitis LN: no visible or palpable lymphadenopathy 04/30/16 04/30/16 04/30/16 05:04 05:04 06:20 WBC 1.0 L RBC 2.05 L Hgb 6.5 L 6.2 L* Hct 20 L 19 L MCV 97 H MCH 32 H MCHC 33 RDW 17 H Plt Count 23 L MPV 10 Immature Gran % (Auto) 2 Neut % (Auto) 80.0 Lymph % (Auto) 5.9 L [place] % (Auto) 8.5 Eos % (Auto) 4.8 Baso % (Auto) 0.8 Absolute Neuts (auto) 0.8 L* Absolute Lymphs (auto) 0.1 L Absolute Monos (auto) 0.1 Absolute Eos (auto) 0 Absolute Basos (auto) 0 Absolute Nucleated RBC 0.01 Neutrophils % 82 Band Neutrophils % 2 Lymphocytes % 5 L Monocytes % 7 Eosinophils % 3 Basophils % 1 Nucleated RBC % 1.2 Normal RBC Morphology Normal Hem Pathologist Commnt Sodium 133 Potassium 3.1 L Chloride 102 Carbon Dioxide 26 Anion Gap 5 BUN 19 Creatinine 1.13 Est GFR ( Amer) 82.3 Est GFR (Non-Af Amer) 64.0 BUN/Creatinine Ratio 16.8 Glucose 108 H Calcium 7.0 L Vancomycin Trough Blood Type Antibody Screen Crossmatch 04/30/16 05/01/16 05/01/16 07:15 06:05 06:05 WBC 1.3 L RBC 2.26 L Hgb 7.2 L Hct 21 L MCV 93 MCH 32 H MCHC 34 RDW 18 H Plt Count 29 L MPV 10 Immature Gran % (Auto) Neut % (Auto) 82.5 Lymph % (Auto) 6.9 L [place] % (Auto) 1.6 Eos % (Auto) 7.5 H Baso % (Auto) 1.5 Absolute Neuts (auto) 1.1 L Absolute Lymphs (auto) 0.1 L Absolute Monos (auto) 0 Absolute Eos (auto) 0.1 Absolute Basos (auto) 0 Absolute Nucleated RBC 0.01 Neutrophils % Band Neutrophils % Lymphocytes % Monocytes % Eosinophils % Basophils % Nucleated RBC % 0.7 Normal RBC Morphology Hem Pathologist Commnt Sodium 138 Potassium 3.0 L Chloride 105 Carbon Dioxide 27 Anion Gap 6 BUN 15 Creatinine 1.08 Est GFR ( Amer) 86.7 Est GFR (Non-Af Amer) 67.4 BUN/Creatinine Ratio 13.9 Glucose 94 Calcium 7.6 L Vancomycin Trough Blood Type O Negative Antibody Screen Negative Crossmatch See Detail 05/02/16 05/02/16 05/02/16 05:15 05:18 05:18 WBC 2.7 L RBC 2.82 L Hgb 8.8 L Hct 26 L MCV 92 MCH 31 MCHC 34 RDW 18 H Plt Count 37 L MPV 9 Immature Gran % (Auto) Neut % (Auto) 84.9 H Lymph % (Auto) 5.7 L [place] % (Auto) 4.3 Eos % (Auto) 4.2 Baso % (Auto) 0.9 Absolute Neuts (auto) 2.3 Absolute Lymphs (auto) 0.2 L Absolute Monos (auto) 0.1 Absolute Eos (auto) 0.1 Absolute Basos (auto) 0 Absolute Nucleated RBC 0.03 Neutrophils % Band Neutrophils % Lymphocytes % Monocytes % Eosinophils % Basophils % Nucleated RBC % 1.0 Normal RBC Morphology Hem Pathologist Commnt Sodium 137 Potassium 3.2 L Chloride 102 Carbon Dioxide 30 Anion Gap 5 BUN 12 Creatinine 1.09 Est GFR ( Amer) 85.8 Est GFR (Non-Af Amer) 66.7 BUN/Creatinine Ratio 11.0 Glucose 98 Calcium 8.2 L Vancomycin Trough 17.1 Blood Type Antibody Screen Crossmatch Assessment: 1. Acute hypoxemic respiratory failure, present on admission 2. pneumonia, diff dx includes usual CAP organisms, HCAP, other viral (CMV), fungal (lenore, Aspergillus), improving 3. myeloma with low IgG 4. hx HSCT 5. ongoing chemotherapy and corticosteroids 6. pancytopenia Plan: 1. continue zosyn, vanco goal tr 10-15, anidulafungin day 5/7; tolerating well Discussed with Dr Rhodes
[2016-05-02] MEDS: Ferrous Sulfate TAB* 325 MG PO SCH (18:55)
[2016-05-02] MEDS: Anidulafungin* 100 MG in NS 0.9% 100 ML* 100 ML IVPB SCH (18:55)
[2016-05-02] MEDS: CMCS: OMEGA-3 FATTY ACIDS (NF) 1,000 MG CAP PO SCH (18:55)
[2016-05-02] MEDS: Atorvastatin* 10 MG TAB PO SCH (21:02)
[2016-05-02] MEDS: QUEtiapine TAB* 100 MG PO SCH (21:02)
[2016-05-02] MEDS: Tamsulosin CAP* 0.4 MG PO SCH (21:02)
[2016-05-03] MEDS: Vancomycin(*) 750 MG in NS 0.9% 250 ML* 250 ML IVPB SCH ×3 (01:17→22:53)
[2016-05-03] MEDS: Benzonatate CAP* 100 MG PO PRN ×2 (01:56→20:00)
[2016-05-03] MEDS: Piperac/Tazob 3.375 gm in NS* 3.375 GM/100 ML BAG IVPB SCH ×3 (03:06→18:02)
[2016-05-03 05:21] LABS: BUN/Creatinine Ratio 9.4 (8-20); Calcium 8.7 mg/dL (8.6-10.3); EGFR African American 88.6 (>60); EGFR Non-African American 68.9 (>60); Potassium 3.3 mmol/L (3.5-5.0)
[2016-05-03 05:23] LABS: Hematocrit 26 % (42-52); Hemoglobin 8.6 g/dl (14.0-18.0); Mean Corpuscular HGB Conc 34 g/dl (31-36); Mean Corpuscular Hemoglobin 31 pg (27-31); Mean Corpuscular Volume 94 fL (80-94); Mean Platelet Volume 9 um3 (7.4-10.4); Red Blood Count 2.75 10^6/ul (4.0-5.4); Red Cell Distribution Width 18 % (10.5-15)
[2016-05-03 05:24] LABS: Comments Flag Yes
[2016-05-03 05:25] LABS: Add Diff/Slide Review? Slide Review Added; White Blood Count 2.8 10^3/ul (3.5-10.8)
[2016-05-03] MEDS: Levothyroxine TAB* 75 MCG TAB PO SCH (05:28)
[2016-05-03] MEDS: Ascorbic Acid TAB* 500 MG PO SCH (09:16)
[2016-05-03] MEDS: Cholecalciferol TAB* 1000 UNITS PO SCH ×2 (09:17→20:00)
[2016-05-03] MEDS: Diltiazem CD CAP* 120 MG PO SCH (09:17)
[2016-05-03] MEDS: Diltiazem CD CAP* 180 MG PO SCH (09:17)
[2016-05-03] MEDS: Calcium/Vitamin D TAB 250/125* TAB PO SCH ×2 (09:17→20:01)
[2016-05-03] MEDS: ValACYclovir (*) 500 MG TAB PO SCH ×2 (09:18→20:01)
[2016-05-03] MEDS: Multivitamins/Minerals TAB PO SCH (09:18)
[2016-05-03] MEDS: Potassium Chlor TAB* 20 MEQ TAB.ER PO SCH ×2 (09:18→20:01)
[2016-05-03] MEDS: Furosemide TAB* 20 MG PO SCH (09:18)
[2016-05-03] MEDS: Anidulafungin* 100 MG in NS 0.9% 100 ML* 100 ML IVPB SCH (15:27)
[2016-05-03] MEDS: Ferrous Sulfate TAB* 325 MG PO SCH (18:02)
[2016-05-03] MEDS: CMCS: OMEGA-3 FATTY ACIDS (NF) 1,000 MG CAP PO SCH (18:02)
[2016-05-03] MEDS: Tamsulosin CAP* 0.4 MG PO SCH (20:00)
[2016-05-03] MEDS: QUEtiapine TAB* 100 MG PO SCH (20:01)
[2016-05-03] MEDS: Atorvastatin* 10 MG TAB PO SCH (20:01)
[2016-05-04] MEDS: Piperac/Tazob 3.375 gm in NS* 3.375 GM/100 ML BAG IVPB SCH (02:39)
[2016-05-04] MEDS: Levothyroxine TAB* 75 MCG TAB PO SCH (05:37)
[2016-05-04 06:22] LABS: Hematocrit 26 % (42-52); Hemoglobin 8.9 g/dl (14.0-18.0); Mean Corpuscular HGB Conc 34 g/dl (31-36); Mean Corpuscular Hemoglobin 32 pg (27-31); Mean Corpuscular Volume 93 fL (80-94); Mean Platelet Volume 9 um3 (7.4-10.4); Red Blood Count 2.79 10^6/ul (4.0-5.4); Red Cell Distribution Width 17 % (10.5-15)
[2016-05-04 06:27] LABS: Comments Flag Yes; White Blood Count 2.6 10^3/ul (3.5-10.8)
[2016-05-04 06:47] LABS: BUN/Creatinine Ratio 8.2 (8-20); Calcium 8.9 mg/dL (8.6-10.3); EGFR African American 84.9 (>60); Magnesium 1.7 mg/dL (1.9-2.7); Potassium 3.8 mmol/L (3.5-5.0)
[2016-05-04] MEDS ORDERED: Vancomycin Trough Check NOTE FOLLOW UP ONE (10:00)
[2016-05-04] MEDS: Calcium/Vitamin D TAB 250/125* TAB PO SCH (10:32)
[2016-05-04] MEDS: Ascorbic Acid TAB* 500 MG PO SCH (10:32)
[2016-05-04] MEDS: Cholecalciferol TAB* 1000 UNITS PO SCH (10:33)
[2016-05-04] MEDS: Diltiazem CD CAP* 120 MG PO SCH (10:34)
[2016-05-04] MEDS: Diltiazem CD CAP* 180 MG PO SCH (10:34)
[2016-05-04] MEDS: Furosemide TAB* 20 MG PO SCH (10:34)
[2016-05-04] MEDS: Multivitamins/Minerals TAB PO SCH (10:35)
[2016-05-04] MEDS: ValACYclovir (*) 500 MG TAB PO SCH (10:35)
[2016-05-04] MEDS: Potassium Chlor TAB* 20 MEQ TAB.ER PO SCH (10:35)
[2016-05-04 11:01] VITALS: BP 130/82
--- NOTE | 2016-05-04 11:37 | RAD ---
Indication: Fever. 2 views of the chest are reviewed and compared to previous exam dated April 26, 2016. No mediastinal shift is noted. Heart is mildly enlarged. Small left pleural effusion is noted. Infiltrate in the right base, right upper lobe, left upper lobe and left base are still persistent however they're markedly improved since April 26, 2016. There may be some residual noted. IMPRESSION: Infiltrate in the right upper lobe and right base appearing markedly improved. Minimal infiltrate in the left upper lobe and left base persists but are also improved. Small left pleural effusion is noted.
[2016-05-04] MEDS: Anidulafungin* 100 MG in NS 0.9% 100 ML* 100 ML IVPB SCH (13:39)
[2016-05-04] MEDS ORDERED: Apixaban* 5 MG TAB PO SCH (21:00)
[2016-05-04] MEDS ORDERED: DOXYcycline CAP(*) 100 MG PO SCH (21:00)
--- NOTE | 2016-05-31 22:09 | DS ---
DISCHARGE SUMMARY: DATE OF ADMISSION: 04/27/16 DATE OF DISCHARGE: 05/04/16 PRINCIPAL REASON FOR ADMISSION: 1. Fever. 2. History of multiple myeloma. 3. Bacterial pneumonia. HOSPITAL COURSE: Briefly, the history and physical addresses this patient is a 71- year-gentleman with a history of multiple myeloma who presented with fever, found to have a chest x-ray with development of cough and white phlegm without chest pain and the emergency room evaluated him and felt to have had a bacterial pneumonia. He was subsequently admitted by the hospitalist and later transferred over to our service. The microbiology culturing including blood, sputum, and urine were all negative for growth. He did have a Legionella urinary antigen testing, which was negative for both Legionella and strep pneumo and nasopharyngeal culturing for influenza, which was also negative. Chest x-ray did report an infiltrate at the right base and upper lobe and left upper lobe and left bases still with persistent pneumonia after antibiotic therapy was initiated. A consultation was obtained both by Dr. Doan who had managed the antibiotic coverage. A transthoracic echocardiogram was also obtained and concluded that there was normal LV function. Ejection fraction was 50% to 55%. There was mild septal hypokinesis and mild mitral regurgitation. Also a consultation was initiated with Dr. Angel De La Cruz for his critical care needs and then later stepped down to a telemetry unit for which we assumed the remainder of his management. He did initially have a lactic acid value of 1.9 and a BNP of 828 and bilateral pulmonary infiltrates. He was started on Zosyn and azithromycin and then later managed by Infectious Disease. He did improve throughout the course of his stay and progressed and was able to go home on oral antibiotic therapy of doxycycline. He also was covered with antifungal coverage during his stay along with CMP coverage with Valtrex. He did have a low IgG level at the time, which will be monitored after his hospital stay. He did have a history of a stem cell transplant in the distant past. He was on ongoing chemotherapy and corticosteroids and was pancytopenic, therefore he required Zosyn, vanco, antifungals and had tolerated them well throughout the hospital stay. His laboratory data included an improving white blood cell count from neutropenic to white blood cell total count of 2.6 on 05/04/16 and was not neutropenic with an ANC of 2.0 on the day of his discharge. He was mildly anemic at 8.9 after transfusion and 26, and his platelet count was 70, 000 on the day of his discharge. He did require a followup after his discharge with office followup and was placed on nebulization and Tessalon Perles for cough and had tolerated his hospital stay relatively well. He was diagnosed initially with acute respiratory failure and improved with antibiotic care. His serology was negative for influenza A and B as I said and not detected for metapneumovirus, otherwise known as HMPV by RNA detection. DISCHARGE MEDICATIONS: He was discharged on the following medications. 1. Albuterol with ipratropium nebulization. 2. Tessalon Perles 200 mg p.o. t.i.d. 3. Doxycycline 100 mg b.i.d. 4. Potassium 40 mEq p.o. b.i.d. 5. Valacyclovir 500 mg p.o. b.i.d. 6. Eliquis, he was to resume at 5 mg b.i.d. 7. Ascorbic acid 500 mg daily. 8. Atorvastatin 10 mg daily. 9. Calcium carbonate 1 tab twice daily. 10. Cardizem 300 mg p.o. daily. 11. Calciferol 1000 international units p.o. b.i.d. 12. Ferrous sulfate daily. 13. Multivitamin daily. 14. [place]-3 fatty acids daily. 15. Synthroid 75 mcg daily. 16. Flomax 0.4 mg p.o. daily. He will assume his Zometa as previously scheduled. He will follow regular diet. Activity level as tolerated and his prescriptions were sent via e-scribe. MONICA ELLINGTON [id number]/[facility] #: [id number] [id number]
== END 2016-05-04 16:45 | disposition home or self-care (01) | DRG 871 ==
LOC: ED 19:30 → ICU 04-27 01:28 → MEDTELE 05-01 12:28
PROVIDERS: ADMIT Internal Medicine; ATTEND Internal Medicine Hematology & Oncology
PROC: 5A09357 Assistance with Respiratory Ventilation, Less than 24 Consecutive Hours, Continuous Positive Airway Pressure (ICD-10-PCS; 2016-04-27)
PROC: 30233N1 Transfusion of Nonautologous Red Blood Cells into Peripheral Vein, Percutaneous Approach (ICD-10-PCS; principal; 2016-05-01)
DX: A41.9 Sepsis, unspecified organism (principal); J18.9 Pneumonia, unspecified organism; J96.01 Acute respiratory failure with hypoxia; N17.0 Acute kidney failure with tubular necrosis; D61.818 Other pancytopenia; Z94.81 Bone marrow transplant status; C90.00 Multiple myeloma not having achieved remission; Z94.84 Stem cells transplant status; C61 Malignant neoplasm of prostate; D69.6 Thrombocytopenia, unspecified; R65.20 Severe sepsis without septic shock; I10 Essential (primary) hypertension; N40.0 Benign prostatic hyperplasia without lower urinary tract symptoms; E78.5 Hyperlipidemia, unspecified; E03.9 Hypothyroidism, unspecified; I48.91 Unspecified atrial fibrillation; D64.9 Anemia, unspecified; G47.00 Insomnia, unspecified; Z82.49 Family history of ischemic heart disease and other diseases of the circulatory system; Z82.0 Family history of epilepsy and other diseases of the nervous system; Z72.89 Other problems related to lifestyle; Z92.21 Personal history of antineoplastic chemotherapy; Z80.9 Family history of malignant neoplasm, unspecified; Z85.820 Personal history of malignant melanoma of skin
CPT/HCPCS: 36415; 36600; 71010; 71020; 80048; 80053; 80202; 81003; 82784; 82803; 83605; 83735; 83880; 83883; 84484; 85014; 85018; 85025; 85060; 85384; 85610; 85652; 85730; 86140; 86850; 86900; 86901; 86922; 87040; 87070; 87086; 87205; 87502; 87641; 87899; 93005; 93306; 94640; 94660; 94760; 96374; 99232; 99233; 99238; 99285; A9270-GY; J0348; J0456; J1940; J2405; J2543; J3370; P9016; P9040

== ENCOUNTER 2016-11-06 18:11 | Emergency (ER) | payer MEDICARE ==
[2016-11-06 18:22] VITALS: BP 125/74
== END 2016-11-06 20:25 | disposition left against medical advice (07) ==
LOC: ED 18:11
DX: R50.9 Fever, unspecified (principal); Z53.21 Procedure and treatment not carried out due to patient leaving prior to being seen by health care provider
CPT/HCPCS: 99281

== ENCOUNTER 2016-11-07 01:39 | Emergency (ER) | payer MEDICARE ==
[2016-11-07 02:49] LABS: Comments Flag Yes; Hematocrit 26 % (42-52); Hemoglobin 8.7 g/dl (14.0-18.0); Mean Corpuscular HGB Conc 33 g/dl (31-36); Mean Corpuscular Hemoglobin 33 pg (27-31); Mean Corpuscular Volume 99 fL (80-94); Mean Platelet Volume 8 um3 (7.4-10.4); Red Blood Count 2.67 10^6/ul (4.0-5.4); Red Cell Distribution Width 16 % (10.5-15); White Blood Count 1.5 10^3/ul (3.5-10.8)
[2016-11-07 02:51] LABS: Urine Bacteria Absent (Absent); Urine Bilirubin Negative (Negative); Urine Glucose Negative (Negative); Urine Nitrite Negative (Negative)
--- NOTE | 2016-11-07 02:58 | ED ---
Lauren Devries Alok, scribed for Bhavesh Gonzalez MD on 11/07/16 at 0207 . HPI Febrile Illness - HPI Summary HPI Summary: 71M presents to the ED with fevers on and off for the past week, measured at 101.9 F today. Pt has been taking Tylenol with little alleviation. Pt also notes fatigue for the past 3 days. Pt denies N/V/D. PMHx includes multiple myeloma. Pt last took his chemotherapy last night. Pt last saw Dr. Montaño one week ago. - History of Current Complaint Chief Complaint: EDFever Time Seen by Provider: 11/07/16 01:52 Hx Obtained From: Patient Onset/Duration: Started Days Ago, Atraumatic, Still Present Timing: Intermittent Temperature: 101.9 F Initial Severity: Moderate Current Severity: Moderate Pain Intensity: 0 Pain Scale Used: 0-10 Numeric Aggravating Factors: Nothing Alleviating Factors: OTC Medicine - Allergy/Home Medications Allergies/Adverse Reactions: Allergies Allergy/AdvReac Type Severity Reaction Status Date / Time No Known Allergies Allergy Verified 02/08/12 13:58 PMH/Surg Hx/FS Hx/Imm Hx Endocrine/Hematology History: Reports: Hx Blood Transfusions - R/t stem cell transplant in 2011, Hx Thyroid Disease - Hypo, Hx Anemia - R/t anemia, Other Endocrine/Hematological Disorders - Stem cell transplant x2 in 2011 Cardiovascular History: Reports: Hx Atrial Fibrillation, Hx Coronary Artery Disease - Calcification seen on PET scan, per pt, Hx Hypercholesterolemia, Hx Hypertension, Other Cardiovascular Problems/Disorders - CAD Respiratory History: Reports: Hx Pneumonia - Fungal PNA in October 2015, Other Respiratory Problems/Disorders - PNA GI History: Reports: Hx Gastroesophageal Reflux Disease - R/t current chemo, on Protonix History: Reports: Hx Benign Prostatic Hyperplasia - Flomax Sensory History: Reports: Hx Hearing Problem Neurological History: Reports: Other Neuro Impairments/Disorders - [employer] amnesia - Cancer History Cancer Type, Location and Year: Prostate CA, Melanoma, Multiple Myeloma Hx Chemotherapy: Yes - Surgical History Surgery Procedure, Year, and Place: Tonsillectomy as child Infectious Disease History: Yes Infectious Disease History: Denies: Traveled Outside the [place] in Last 30 Days - Family History Known Family History: Positive: Other - [place] - Social History Occupation: Retired Lives: With Family Alcohol Use: Occasionally Alcohol Amount: Drinks less with chemo, usually around 1 drink, 2x per week Substance Use Type: Reports: None Hx Tobacco Use: No Smoking Status (MU): Never Smoked Tobacco Review of Systems Positive: Fever Negative: Cough Negative: Vomiting, Diarrhea, Nausea All Other Systems Reviewed And Are Negative: Yes Physical Exam Triage Information Reviewed: Yes Vital Signs On Initial Exam: Initial Vitals Temp Pulse Resp BP Pulse Ox 100.5 F 78 18 139/74 94 11/07/16 01:49 11/07/16 01:49 11/07/16 01:49 11/07/16 01:49 11/07/16 01:49 Vital Signs Reviewed: Yes Appearance: Positive: Well-Appearing, No Pain Distress Skin: Positive: Warm Head/Face: Positive: Normal Head/Face Inspection Eyes: Positive: DANIEL ENT: Positive: Hearing grossly normal Neck: Positive: Supple Respiratory/Lung Sounds: Positive: Clear to Auscultation, Breath Sounds Present Cardiovascular: Positive: RRR Abdomen Description: Positive: Nontender, Soft Bowel Sounds: Positive: Present Musculoskeletal: Positive: Strength/ROM Intact Neurological: Positive: Alert, Oriented to Person Place, Time Psychiatric: Positive: Affect/Mood Appropriate Diagnostics - Vital Signs Vital Signs Temp Pulse Resp BP Pulse Ox 11/07/16 01:49 100.5 F 78 18 139/74 94 - Laboratory Lab Results: Lab Results 11/07/16 11/07/16 Range/Units 02:10 02:15 WBC 1.5 L (3.5-10.8) 10^3/ul RBC 2.67 L (4.0-5.4) 10^6/ul Hgb 8.7 L (14.0-18.0) g/dl Hct 26 L (42-52) % MCV 99 H (80-94) fL MCH 33 H (27-31) pg MCHC 33 (31-36) g/dl RDW 16 H (10.5-15) % Plt Count 157 (150-450) 10^3/ul MPV 8 (7.4-10.4) um3 Neut % (Auto) 82.2 (38-83) % Lymph % (Auto) 5.5 L (25-47) % [place] % (Auto) 5.1 (1-9) % Eos % (Auto) 6.9 H (0-6) % Baso % (Auto) 0.3 (0-2) % Absolute Neuts (auto) 1.3 L (1.5-7.7) 10^3/ul Absolute Lymphs (auto) 0.1 L (1.0-4.8) 10^3/ul Absolute Monos (auto) 0.1 (0-0.8) 10^3/ul Absolute Eos (auto) 0.1 (0-0.6) 10^3/ul Absolute Basos (auto) 0 (0-0.2) 10^3/ul Absolute Nucleated RBC 0.02 10^3/ul Nucleated RBC % 1.4 Urine Color Yellow Urine Appearance Clear Urine pH 7.0 (5-9) Ur Specific [place] 1.023 (1.010-1.030) Urine Protein 2+(100 mg/dl) H (Negative) Urine Ketones Negative (Negative) Urine Blood Negative (Negative) Urine Nitrate Negative (Negative) Urine Bilirubin Negative (Negative) Urine Urobilinogen Negative (Negative) Ur Leukocyte Esterase Negative (Negative) Urine WBC (Auto) Absent (Absent) Urine RBC (Auto) Trace(0-2/hpf) (Absent) Ur Squamous Epith Cells Present H (Absent) Urine Bacteria Absent (Absent) Urine Glucose Negative (Negative) Result Diagrams: 11/07/16 02:10 11/07/16 02:10 Lab Statement: Any lab studies that have been ordered have been reviewed, and results considered in the medical decision making process. - Radiology CXR Xray Interpretation: No Acute Changes Radiology Interpretation Completed By: ED Physician - Dr. Gonzalez Re-Evaluation - Re-Evaluation First Eval Re-Evaluation Time: 03:07 Change: Improved Comment: results d/w pt Course/Dx - Diagnoses Provider Diagnoses: Fever Discharge - Discharge Plan Condition: Stable Disposition: HOME Patient Education Materials: Fever in Adults (ED) Referrals: Toya Montaño MD [Primary Care Provider] - The documentation as recorded by the Lauren delgado Alok accurately reflects the service I personally performed and the decisions made by , Bhavesh Gonzalez MD.
[2016-11-07 03:00] LABS: Albumin 2.5 g/dL (3.2-5.2); BUN/Creatinine Ratio 22.8 (8-20); Calcium 7.6 mg/dL (8.6-10.3); EGFR African American 104.3 (>60); EGFR Non-African American 81.1 (>60); Globulin 2.3 g/dL (2-4); Potassium 3.9 mmol/L (3.5-5.0); Total Bilirubin 0.6 mg/dL (0.2-1.0); Total Protein 4.8 g/dL (6.4-8.9)
[2016-11-07 03:14] VITALS: BP 133/65
--- NOTE | 2016-11-07 07:57 | RAD ---
INDICATION: Fever. COMPARISON: Comparison is made with a prior chest x-ray study from May 04, 2016. Correlation is also made with a prior study from April 29, 2016. TECHNIQUE: Dual-energy PA and lateral views of the chest were obtained. FINDINGS: The heart is within normal limits in size. Mediastinal and hilar contours appear within normal limits. The lungs are underinflated. There is mild prominence of the interstitial markings. In addition there is a more focal patchy infiltrate present in the left lower lobe. There is suggestion of a trace left pleural effusion. IMPRESSION: LEFT LOWER LOBE INFILTRATES SUGGESTIVE OF PNEUMONIA.
== END 2016-11-07 03:15 | disposition home or self-care (01) ==
LOC: ED 01:39
DX: R50.9 Fever, unspecified (principal)
CPT/HCPCS: 36415; 71020; 80053; 81003; 81015; 85025; 99282